=== PATIENT | male | born 1935 | race Caucasian/White ===

== ENCOUNTER 2024-02-02 15:35 | Emergency (ER) | payer MEDICARE, SELFPAY ==
--- NOTE | ~2024-02-02 | XR_ITS ---
EXAMINATION: XR knee RT min 4V DATE: 02/02/2024 16:30 INDICATION: Right knee pain and swelling. Fall. TECHNIQUE: 5 views of right knee were obtained. COMPARISON: None. FINDINGS: There is lateral subluxation of patella. There is a comminuted fracture of proximal patella . The main distal fracture fragment demonstrates 3 mm distraction. There is moderate osteoarthritis o f patellofemoral compartment and mild osteoarthritis of medial lateral compartments. 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 There is a large knee joint effusion. IMPRESSION: 1. Comminuted fracture of proximal patella. 2. Moderate right knee osteoarthritis. 3. Large knee joint effusion. Reviewed, dictated and finalized at location A. SEPARATOR
[2024-02-02 15:48] VITALS: BP 137/68; PULSE 93; RESP 20; TEMP 36.7; O2SAT 100
--- NOTE | 2024-02-02 16:09 | ED.FALL ---
HPI - Fall General Chief Complaint: Extremity Injury, Lower Stated Complaint: Fall Injury/Right Knee Source: patient Mode of arrival: ambulatory Limitations: no limitations History of Present Illness HPI Narrative: 88-year-old male presented for complaint of right knee pain and swelling after injury last night. He states a rubber mat slipped underneath him and he landed on hard tile dwight. Since then he has been unable to tolerate full weight-bearing. Has applied ice. Refused to take anything for pain. Admits to hitting the left side of his head but says it did not hurt a bit. Related Data Home Medications ?Medication ?Instructions ?Recorded ?Confirmed ?Last Taken ?Type donepezil 10 mg tablet mg 02/02/24 Unknown History Allergies Allergy/AdvReac Type Severity Reaction Status Date / Time No Known Allergies Allergy Verified 02/02/24 15:54 Review of Systems Review of Systems: CONSTITUTIONAL: Denies body aches, fever, chills CARDIOVASCULAR: Denies chest pain, palpitations, or edema. RESPIRATORY: Denies cough or dyspnea. GASTROINTESTINAL: Denies abdominal pain, nausea, vomiting, or diarrhea. SKIN: Denies wounds. MUSCULOSKELETAL: Reports right knee pain NEUROLOGIC: Denies headache, numbness, tingling, or weakness. All systems reviewed & are unremarkable except as noted in HPI and below PMFSH Comments At time of signature, I have reviewed and agree with nursing past medical, surgical, social and family history unless otherwise noted. Please see nursing chart for further information. There is no relevant family history pertinent to the presenting complaint Exam Narrative: GENERAL: Well-appearing HEAD: Normocephalic, atraumatic. CHEST: Speaks in full sentences. No respiratory distress. HEART: Regular rate and rhythm. Normal and equal peripheral pulses. EXTREMITIES: RLE unable to tolerate weight bearing, Limited range of motion right knee due to pain with movement. Moderate swelling noted to right knee; tender with palpation of the patella and superior to the patella. No open wounds, RLE has mya sensation,pulse palpable and equal bilaterally, skin warm, dry, pink. Capillary refill less than 3 seconds. SKIN: Warm, dry NEURO: Alert and oriented x3. PSYCH: Normal mood and affect Course Course Emergency Course: Patient is aware of diagnosis, understands and agrees to treatment plan. Anticipatory guidance given. Patient agrees to follow-up as directed and is aware of reasons to seek care at the emergency department. Portions of this record may have been created with voice recognition software Level of Care: Express Care Visit Vital Signs Vital signs: Vital Signs Temperature 98.0 F 02/02/24 15:48 Pulse Rate 93 02/02/24 15:48 Respiratory Rate 20 02/02/24 15:48 Blood Pressure 137/68 02/02/24 15:48 Pulse Oximetry 100 02/02/24 15:48 Oxygen Delivery Room Air 02/02/24 15:48 Temperature 98.0 F 02/02/24 15:48 Pulse Rate 93 02/02/24 15:48 Respiratory Rate 20 02/02/24 15:48 Blood Pressure 137/68 02/02/24 15:48 Pulse Oximetry 100 02/02/24 15:48 Oxygen Delivery Room Air 02/02/24 15:48 Reviewed Transfer Transfered to: [place] Transportation: Other ( Private vehicle) Transfer rationale: Pt is agreeable to transfer. Requests transfer to [facility] via private vehicle/ ambulance. Risks of transportation reviewed with pt including injury, worsening of condition and . v/u. Dtr will be driving pt; Report called to hospital, spoke with Jordy West PA-C, accepting physician. Pt is in stable condition at time of transfer. Advised to remain NPO and go directly to the hospital. MDM - Fall MDM Narrative Medical decision making narrative: Discussed physical exam findings and Xray result; comminuted fracture of right patella. Advised ER transfer given age and limited mobility. Spoke with ER Jordy West PA-C. Daughter at bedside is agreeable to the transfer and aware of the possibility of immobilization and f/u. Knee immobilizer applied prior to dc. Differential Diagnosis Differential diagnosis: Likely other (osteoarthritis, patella dislocation, patalla fracture, patellar tendonitis, tendon rupture, gout, bakers cyst, septic bursitis, tibial plateau fracture) Imaging Data Radiologist's impression: Patient: Hakan Recinos : 1935 MR#: [id number] Age: 88 Acct:[id number] Loc: [facility] ADM Date: 02/02/24Attending Dr: Ordering Physician: Jocelyn Vidal APRN Date of Service: 02/02/24 Procedure(s): XR knee RT min 4V Accession Number(s): [id number] cc: Jocelyn Vidal APRN; UNKNOWN,DOCTOR~ EXAMINATION: XR knee RT min 4V DATE: 02/02/2024 16:30 INDICATION: Right knee pain and swelling. Fall. TECHNIQUE: 5 views of right knee were obtained. COMPARISON: None. FINDINGS: There is lateral subluxation of patella. There is a comminuted fracture of proximal patella. The main distal fracture fragment demonstrates 3 mm distraction. There is moderate osteoarthritis of patellofemoral compartment and mild osteoarthritis of medial lateral compartments. There is chondrocalcinosis of the menisci. There is a large knee joint effusion. IMPRESSION: 1. Comminuted fracture of proximal patella. 2. Moderate right knee osteoarthritis. 3. Large knee joint effusion. Discharge Plan Discharge Clinical Impression: Fractured patella Qualifiers: Encounter type: initial encounter Fracture type: closed Fracture morphology: comminuted Fracture alignment: displaced Laterality: right Qualified Code(s): S82.041A - Displaced comminuted fracture of right patella, initial encounter for closed fracture Patient Disposition: Acute Care Hospital Condition: Stable Instructions: Antibiotic Form Patient Language: Wolof Prescriptions: No Action donepezil 10 mg tablet Follow-up/Referrals: UNKNOWN,DOCTOR [Primary Care Provider] - Time of Disposition: 17:13
== END 2024-02-02 17:12 | disposition short-term general hospital (02) ==
PROVIDERS: Emergency Provider Nurse Practitioner Family
DX: S82.041A Displaced comminuted fracture of right patella, initial encounter for closed fracture (principal); W01.0XXA Fall on same level from slipping, tripping and stumbling without subsequent striking against object, initial encounter; F03.90 Unspecified dementia, unspecified severity, without behavioral disturbance, psychotic disturbance, mood disturbance, and anxiety
CPT/HCPCS: 73564; 99214; G0463; L1830

== ENCOUNTER 2024-02-02 18:18 | Inpatient (IN) | payer MEDICARE, SELFPAY ==
--- NOTE | ~2024-02-02 | XR_ITS ---
EXAMINATION: XR chest 2V DATE: 02/02/2024 22:13 INDICATION: Fall. TECHNIQUE: Frontal and lateral views of the chest were obtained. COMPARISON: None. FINDINGS: There is no pneumonia, pleural effusion, or pneumothorax. The heart size is normal. There i s a 2 mm radiopaque foreign body in the anterior neck. IMPRESSION: 1. No acute cardiopulmonary disease. Reviewed, dictated and finalized at location A. MMISSIONING WELL SITE MANAGER
--- NOTE | ~2024-02-02 | XR_ITS ---
EXAMINATION: XR pelvis 1-2V DATE: 02/02/2024 22:13 INDICATION: Fall. TECHNIQUE: An anteroposterior view of the pelvis was obtained. COMPARISON: None. FINDINGS: There is lumbar dextroscoliosis and severe spondylosis. No fracture. There is moderate righ t hip osteoarthritis and mild left hip osteoarthritis. IMPRESSION: 1. 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 Reviewed, dictated and finalized at location A. ICATION TECHNICIAN
--- NOTE | ~2024-02-02 | CT_ITS ---
EXAMINATION: CT brain wo con DATE: 02/02/2024 22:23 INDICATION: Head injury. TECHNIQUE: Computed tomography (CT) of the head was performed without intravenous contrast. The mA wa s adjusted according to patient size. Iterative reconstruction technique was employed. The dose-lengt h product was 908.00 mGy-cm. COMPARISON: None FINDINGS: There are scattered areas of low attenuation in the cerebral white matter. There is no intr acranial hemorrhage, acute infarction, or abnormal intracranial mass lesion. 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 The ventricles are normal in size. There is mild mucosal thickening in the paranas al sinuses. There are likely changes of ocular lens replacement surgeries. There are small bilateral mastoid effusions. IMPRESSION: 1. 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 2. Moderate nonspecific cerebral white matter disease, which likely represents chronic small vessel i schemic disease. Reviewed, dictated and finalized at location A. ONAL OFFICE COORDINATOR IMPRESSION: 1. 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 2. 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
[2024-02-02 19:02] VITALS: BP 125/84; PULSE 90; RESP 16; TEMP 36.8; O2SAT 98
[2024-02-02 21:47] VITALS: BP 132/81; PULSE 84; RESP 18; O2SAT 98
--- NOTE | 2024-02-02 22:00 | ED.LOWEXIN ---
HPI - Extremity Injury (Lower) General Chief Complaint: Extremity Injury, Lower Stated Complaint: R KNEE FX S/P FALL LAST NIGHT Time Seen by Provider: 02/02/24 21:46 Source: patient Mode of arrival: wheelchair Limitations: dementia History of Present Illness HPI Narrative: This is a 88 year old male that presents to the ER for right knee injury. Patient was placed in a knee immobilizer after being seen at urgent care for patella fracture. Sent to the ER for further evaluation. Reports he slipped and fell last night. He did hit his head. Denies any other pain at this time. Related Data Home Medications ?Medication ?Instructions ?Recorded ?Confirmed ?Last Taken ?Type donepezil 10 mg tablet 10 mg PO QPM 02/02/24 02/02/24 Unknown History famotidine 40 mg tablet 40 mg PO DAILY 02/02/24 02/02/24 Unknown History Allergies Allergy/AdvReac Type Severity Reaction Status Date / Time No Known Allergies Allergy Verified 02/02/24 23:51 Review of Systems Review of Systems: ROS unobtainable: Yes unobtainable due to medical condition PMFSH Past Medical History Medical History History of dementia Family History Family History Other Unknown family medical history Social History Social History Smoking packs per day: 1.5 Smoking cigarettes per day: 30.0 Years smoked: 35 Smoking pack-years: 52.50 Smoking status: Former smoker Substance use: never Do You Feel Safe in your Home?: Yes Lack of Transportation: No Lack of Food: Never True Current Housing: I Have Housing Concerned About Future Housing: No Difficulty Paying Gas/Electric Bills: No Difficulty Paying for Meds: No Currently Unemployed: No Education: High School Diploma/GED Difficulty w/ Childcare or Family Care: No Spiritual care concerns: No Exam Narrative: GENERAL: Elderly, well-nourished, and in no acute distress. HEAD: Normocephalic, atraumatic. EYES: PERRLA and EOMI. ENT: Nares clear, no rhinorrhea or epistaxis. Mucous membranes moist. Oropharynx without tonsillar hypertrophy exudate or other lesions. Bilateral TMs pearly todd non-bulging NECK: Supple. No adenopathy or masses. No midline spinal tenderness CHEST: Clear to auscultation. No respiratory distress. No wheezes rales or rhonchi HEART: Regular rate and rhythm. No murmur heard. Normal peripheral pulses. EXTREMITIES: Normal range of motion, except decreased active ROM in the right knee with edema noted. Normal DP pulse. Normal sensation SKIN: Warm, dry, no rash. NEURO: No focal deficits. Alert and oriented x3. PSYCH: Normal mood and affect Course Course Emergency Course: patient and family updated on workup. they do not believe patient will be safe to go home. Will consult hospitalist for admission Consultations Consultation #1: spoke with hospitalist about patient and workup who accepts admission Date: 02/02/24 Consultation #2: spoke with orthopedics who will consult Date: 02/02/24 Vital Signs Vital signs: Vital Signs Temperature 98.2 F 02/02/24 19:02 Pulse Rate 90 02/02/24 19:02 Respiratory Rate 16 02/02/24 19:02 Blood Pressure 125/84 02/02/24 19:02 Pulse Oximetry 98 02/02/24 19:02 Temperature 98.2 F 02/02/24 19:02 Pulse Rate 84 02/02/24 21:47 Respiratory Rate 18 02/02/24 21:47 Blood Pressure 132/81 02/02/24 21:47 Pulse Oximetry 98 02/02/24 21:47 MDM - Extremity Injury (Lower) MDM Narrative Medical decision making narrative: patient presents from urgent care for patellar fracture after a fall. He is neurovascularly intact. CT brain, chest xray, pelvic xray without acute findings. patient and family updated on workup. they do not believe patient will be safe to go home. Will consult hospitalist for admission. spoke with hospitalist about patient and workup who accepts admission. spoke with orthopedics who will consult Lab Data Attestation: I reviewed the patient's lab results. 02/02/24 22:56 02/02/24 22:56 Labs: Lab Results 02/02/24 Range/Units 22:56 WBC 9.2 (4.5-10.0) K/mm3 RBC 4.04 L (4.6-6.20) M/mm3 Hgb 13.5 L (14.0-18.0) g/dL Hct 39.6 L (42.0-52.0) % MCV 98.0 (80-100) fl MCH 33.4 (26-34) pg MCHC 34.1 (32-36) g/dl RDW 13.2 (11.5-14.5) % Plt Count 184 (150-375) k/mm3 MPV 9.2 (7.4-10.4) fl Immature Gran % (Auto) 0.4 (0-0.5) % Neut % (Auto) 68.2 (45.5-73.1) % Lymph % (Auto) 15.2 L (18.3-44.2) % [place] % (Auto) 12.7 H (2.6-8.5) % Eos % (Auto) 3.0 (0-4.4) % Baso % (Auto) 0.5 (0.2-1.2) % Lymph # (Auto) 1.40 (0.9-3.2) K/mm3 [place] # (Auto) 1.2 H (0.1-0.6) K/mm3 Eos # (Auto) 0.3 (0-0.3) K/mm3 Baso # (Auto) 0.1 (0.0-0.1) K/mm3 Abs Immat Gran (auto) 0.04 H (0.00-0.031) K/mm3 Absolute Neuts (auto) 6.3 (1.3-6.7) K/mm3 Absolute Nucleated RBC 0.000 (0.0-0.012) K/mm3 Nucleated RBC % 0.0 (0.0-0.2) % Sodium 140 (137-145) mmol/L Potassium 4.1 (3.4-5.0) mmol/L Chloride 107 (98-107) mmol/L Carbon Dioxide 30 (22-30) mmol/L Anion Gap 3 L (4-12) mmol/L BUN 23 H (9-20) mg/dL Creatinine 1.30 (0.7-1.3) mg/dL Estim Creat Clear Calc 31 ml/min Estimated GFR 52 L (59 - ) Glucose 106 (65-110) mg/dL Calcium 9.4 (8.4-10.2) mg/dL Imaging Data Radiologist's impression: ITS Impressions Chest X-Ray 12/16/24 22:14 IMPRESSION: 1. No acute cardiopulmonary disease. Pelvis X-Ray 02/02/24 22:17 IMPRESSION: 1. 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 Head CT 02/02/24 22:24 IMPRESSION: 1. 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 2. 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 Critical Care Time Critical Care Time Critical Care Time: No Discharge Plan Discharge Clinical Impression: Fracture, patella Qualifiers: Encounter type: initial encounter Fracture type: closed Fracture morphology: comminuted Fracture alignment: displaced Laterality: right Qualified Code(s): S82.041A - Displaced comminuted fracture of right patella, initial encounter for closed fracture Patient Disposition: Still a Patient Condition: Stable
[2024-02-02 23:19] LABS: Basophils Absolute Auto 0.1 K/mm3 (0.0-0.1); Basophils Percent Auto 0.5 % (0.2-1.2); Eosinophils Absolute Auto 0.3 K/mm3 (0-0.3); Hematocrit 39.6 % (42.0-52.0); Hemoglobin 13.5 g/dL (14.0-18.0); Immature Granulocyte Absolute 0.04 K/mm3 (0.00-0.031); Immature Granulocyte Percent A 0.4 % (0-0.5); Lymphocytes Percent Auto 15.2 % (18.3-44.2); Mean Corpuscular HGB Conc 34.1 g/dl (32-36); Mean Corpuscular Hemoglobin 33.4 pg (26-34); Mean Platelet Volume 9.2 fl (7.4-10.4); Monocytes Absolute Auto 1.2 K/mm3 (0.1-0.6); Monocytes Percent Auto 12.7 % (2.6-8.5); Neutrophils Absolute Auto 6.3 K/mm3 (1.3-6.7); Neutrophils Percent Auto 68.2 % (45.5-73.1); Platelet Count Result 184 k/mm3 (150-375); Red Blood Count 4.04 M/mm3 (4.6-6.20); Red Cell Distribution Width 13.2 % (11.5-14.5); White Blood Count 9.2 K/mm3 (4.5-10.0)
--- NOTE | 2024-02-02 23:24 | PM.IMHP ---
H&P: HPI History of Present Illness Date/Time: 02/02/24 23:24 Chief Complaint: fall Narrative: This is an 88-year-old male with past medical history significant for early dementia, patient was brought to the emergency room after having a mechanical fall while while on wet floor patient unable to get up on by himself no loss of consciousness. Patient has been his usual state of health. Preliminary workup significant for right patella comminuted fracture and large knee effusion. Patient has been admitted for further evaluation management and treatment. EXAMINATION: CT brain wo con DATE: 02/02/2024 22:23 INDICATION: Head injury. TECHNIQUE: Computed tomography (CT) of the head was performed without intravenous contrast. The mA was adjusted according to patient size. Iterative reconstruction technique was employed. The dose-length product was 908.00 mGy-cm. COMPARISON: None FINDINGS: There are scattered areas of low attenuation in the cerebral white matter. There is no intracranial hemorrhage, acute infarction, or abnormal intracranial mass lesion. 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 The ventricles are normal in size. There is mild mucosal thickening in the paranasal sinuses. There are likely changes of ocular lens replacement surgeries. There are small bilateral mastoid effusions. IMPRESSION: 1. 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 2. 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 EXAMINATION: XR chest 2V DATE: 02/02/2024 22:13 INDICATION: Fall. TECHNIQUE: Frontal and lateral views of the chest were obtained. COMPARISON: None. FINDINGS: There is no pneumonia, pleural effusion, or pneumothorax. The heart size is normal. There is a 2 mm radiopaque foreign body in the anterior neck. IMPRESSION: 1. No acute cardiopulmonary disease. EXAMINATION: XR knee RT min 4V DATE: 02/02/2024 16:30 INDICATION: Right knee pain and swelling. Fall. TECHNIQUE: 5 views of right knee were obtained. COMPARISON: None. FINDINGS: There is lateral subluxation of patella. There is a comminuted fracture of proximal patella. The main distal fracture fragment demonstrates 3 mm distraction. There is moderate osteoarthritis of patellofemoral compartment and mild osteoarthritis of medial lateral compartments. There is chondrocalcinosis of the menisci. There is a large knee joint effusion. IMPRESSION: 1. Comminuted fracture of proximal patella. 2. Moderate right knee osteoarthritis. 3. Large knee joint effusion. Review of Systems Review of Systems: fall, knee pain, unable to bear weight on R leg [facility] Past Medical History Medical History History of dementia Family History Family History Other Unknown family medical history Social History Social History Smoking packs per day: 1.5 Smoking cigarettes per day: 30.0 Years smoked: 35 Smoking pack-years: 52.50 Smoking status: Former smoker Substance use: never Do You Feel Safe in your Home?: Yes Lack of Transportation: No Lack of Food: Never True Current Housing: I Have Housing Concerned About Future Housing: No Difficulty Paying Gas/Electric Bills: No Difficulty Paying for Meds: No Currently Unemployed: No Education: High School Diploma/GED Difficulty w/ Childcare or Family Care: No Spiritual care concerns: No Meds Home Medications and Allergies Home Medications ?Medication ?Instructions ?Recorded ?Confirmed ?Type donepezil 10 mg tablet 10 mg PO QPM 02/02/24 02/02/24 History famotidine 40 mg tablet 40 mg PO DAILY 02/02/24 02/02/24 History Allergies Allergy/AdvReac Type Severity Reaction Status Date / Time No Known Allergies Allergy Verified 02/02/24 23:51 Vital Signs Vital Signs - 24 hr 02/02/24 19:02 02/02/24 21:47 Temperature 98.2 F Pulse Rate 90 84 Respiratory Rate 16 18 Blood Pressure 125/84 132/81 Pulse Oximetry 98 98 Exam Narrative: lying in stretcher Const: General: comfortable, no acute distress, well developed, alert, awake and average body habitus Nutritional Appearance: average body habitus Orientation/consciousness: patient oriented x3 HENMT: Head: normal to inspection, normocephalic and atraumatic Ears: hearing grossly normal bilaterally Face/Nose/Sinus: normal facial exam Face and sinus: normal facial exam Eyes: General: appearance normal, both eyes and all related structures Pupils: Equal, round and reactive pupils present EOM: EOMs intact bilaterally Neck: Neck: full ROM, no lymphadenopathy and no JVD Thyroid: thyroid normal Lymphatic: no lymphadenopathy noted Resp: Effort & Inspection: normal respiratory effort and able to speak in complete sentences Auscultation: clear to auscultation bilaterally Cardio: Jugular venous distension: no JVD Rate: regular rate Rhythm: regular rhythm Heart sounds: S1 normal heart sound present and S2 normal heart sound present GI: GI Palp: Yes Soft to palpation and Yes No hepatosplenomegaly present : General: Yes deferred Skin: Rashes: no rashes Wounds: no wounds Neuro: General: patient oriented x3 and CN's II-XI intact bilaterally Cranial nerves: Yes CN's II-XII intact bilaterally and Yes Equal, round and reactive pupils present Cognition (Neuro): normal cognition Speech: normal speech Gait exam (Neuro): Unable to assess gait and Other gait observations present ( Right paddle a comminuted fracture with large knee effusion) Motor exam (neuro): 5/5 motor strength present throughout Extrem: General: normal to inspection, full ROM, no joint enlargement and no pedal edema Other: brace in place the right lower extremity Assessment and Plan Assessment and plan (1) Fractured patella: Qualifiers: Encounter type: initial encounter Fracture alignment: displaced Fracture morphology: comminuted Fracture type: closed Laterality: right Qualified Code(s): S82.041A - Displaced comminuted fracture of right patella, initial encounter for closed fracture Code(s): S82.009A - Unspecified fracture of unspecified patella, initial encounter for closed fracture Status: Inactive Assessment and Plan: admit to regular medical floor bed rest brace in place ortho consult (2) Fall: Code(s): W19.XXXA - Unspecified fall, initial encounter Status: Acute Assessment and Plan: fall precautions (3) Dementia: Code(s): F03.90 - Unspecified dementia, unspecified severity, without behavioral disturbance, psychotic disturbance, mood disturbance, and anxiety Status: Acute Assessment and Plan: continue donepezil Hospitalist MIPS Advance Care Plan I have confirmed that the patient's Advanced Care Plan is present, code status is documented, or surrogate decision maker is listed in patient medical record.: Yes Medication Reconciliation I have utilized all available resources to obtain, update and review the patients current medications (includes all prescriptions, OTC, herbals, cannabis, and nutritional supplements).: Yes
[2024-02-02 23:34] LABS: Anion Gap 3 mmol/L (4-12); Blood Urea Nitrogen 23 mg/dL (9-20); Calcium 9.4 mg/dL (8.4-10.2); Carbon Dioxide 30 mmol/L (22-30); Chloride 107 mmol/L (98-107); Estimated CRCL calculation 31 ml/min; Estimated Glomerular Filt Rate 52; Glucose 106 mg/dL (65-110); Potassium 4.1 mmol/L (3.4-5.0); Sodium 140 mmol/L (137-145)
[2024-02-02 23:37] VITALS: BMI 21.1
--- NOTE | 2024-02-02 23:44 | P.CONOP_ITS ---
Assessment and Plan Assessment and plan (1) Fractured patella: Qualifiers: Encounter type: initial encounter Fracture alignment: displaced F racture morphology: comminuted Fracture type: closed Laterality: right Q ualified Code(s): S82.041A - Displaced comminuted fracture of right patella, initial encounter for closed fracture Code(s): S82.009A - Unspecified fracture of unspecified patella, initial encounter for closed fracture Status: Inactive Assessment and Plan: New patient evaluation status post injury right knee. The history, physical exam and radiographs reviewed with the patient. fall on wet mat in the basement at home. Type of fracture discussed in detail. Transverse patella fracture. Treatment options including operative and non operative treatment reviewed. Risks, benefits and alternatives of each treatment discussed in detail. The patient has declined surgical treatment. Risks of treatment decision discussed in detail. Potential problems with displacement of the fracture, loss of alignment, nonunion, malunion and dysfunction discussed in detail. The patient's questions were answered. They verbalized understanding and agreement. Conservative treatment with immobilization, ice, compression and elevation. Knee immobilizer. Weight bear as tolerated. Pain control. PT/OT. May need placement based on mobilization. History of Present Illness HPI Consult date: 02/03/24 Requesting physician: Tari Farmer PA-C Chief complaint: Patella fracture Narrative: 88yo man lives at home, fall today In basement on wet match onto the front of right knee. Right knee pain. Found to have patella fx. Review of Systems 2 Constitutional: Constitutional: Denies fever(s) Eyes: Eyes: Denies blurry vision ENT: Reports Normal hearing present Cardiovascular: Cardiovascular: Denies chest pain and Denies dyspnea Respiratory: Respiratory: Denies dyspnea and Denies wheezing Gastrointestinal: Gastrointestinal: Denies abdominal pain Genitourinary: Genitourinary: Denies urinary urgency Musculoskeletal: Musculoskeletal: Reports as per HPI and Denies numbness Integumentary/Breasts: Skin/Breast: Denies changing lesions and Denies sores Neurologic: Reports Normal hearing present, Denies behavioral changes, Denies confusion, Denies numbness and Denies convulsions Psychiatric: Psychiatric: Denies behavioral changes, Denies confusion and Denies hallucinations Endocrine: Endocrine: Denies heat intolerance Hematologic/Lymphatic: Hematologic/Lymphatic: Denies easy bleeding Allergic/Immunologic: Allergic/Immunologic: Denies wheezing PMFSH Past Medical History Medical History History of dementia Family History Family History Other Unknown family medical history Social History Social History Smoking packs per day: 1.5 Smoking cigarettes per day: 30.0 Years smoked: 35 Smoking pack-years: 52.50 Smoking status: Former smoker Substance use: never Do You Feel Safe in your Home?: Yes Lack of Transportation: No Lack of Food: Never True Current Housing: I Have Housing Concerned About Future Housing: No Difficulty Paying Gas/Electric Bills: No Difficulty Paying for Meds: No Currently Unemployed: No Education: High School Diploma/GED Difficulty w/ Childcare or Family Care: No Spiritual care concerns: No Meds Home Medications and Allergies Home Medications ?Medication ?Instructions ?Recorded ?Confirmed ?Type donepezil 10 mg tablet 10 mg PO QPM 02/02/24 02/02/24 History famotidine 40 mg tablet 40 mg PO DAILY 02/02/24 02/02/24 History Allergies Allergy/AdvReac Type Severity Reaction Status Date / Time No Known Allergies Allergy Verified 02/02/24 23:51 Vital Signs Vital Signs - 24 hr 02/02/24 19:02 02/02/24 21:47 Temperature 98.2 F Pulse Rate 90 84 Respiratory Rate 16 18 Blood Pressure 125/84 132/81 Pulse Oximetry 98 98 Exam 2 Const: General: healthy appearing; No in distress or confusion O rientation/consciousness: oriented to person, oriented to place, oriented to time and No confusion HENMT: Head: normal to inspection, normocephalic and atraumatic Eyes: Conjunctivae: conjunctivae normal Sclera: sclerae normal Neck: Neck: supple and nontender Resp: Effort & Inspection: normal respiratory effort and no audible wheezes Cardio: Rate: regular rate Rhythm: regular rhythm Skin: General skin exam: no rashes or lesions noted Neuro: General: oriented to person, oriented to place, oriented to time and No confusion Extrem: Right upper extremity: normal to inspection Left upper extremity: n ormal to inspection Right lower extremity: hip/thigh Details: normal ROM; no tenderness, knee Details: tenderness (anterior and medial joint line ) Location: of the medial joint line (moderate ) and of the pre-patellar area (moderate ), swelling (peripatellar and medial joint ), abnormal ROM (active range of motion -10 degrees extension, 110 degrees flexion) Details: pain with active ROM during Details: in extension and in flexion, knee ligament exam normal Details: anterior drawer test normal, posterior drawer test normal, valgus stress test normal and Maxine?s test normal, knee ligament exam abnormal Details: varus stress test normal (painful medial ) and Tracy's Test Details: positive medially and foot Details: normal capillary refill, toes with normal ROM, vascular exam Details: dorsalis pedis pulse present and motor-sensory exam Details: light-touch normal; no tenderness; no edema Left lower extremity: n ormal to inspection, normal capillary refill and knee Details: normal ROM (Active extension 5, flexion 130) and knee ligament exam normal; no tenderness Psych: Affect: normal affect Results Labs 02/02/24 22:56 02/02/24 22:56 Labs: Abnormal lab results 02/02/24 Range/Units 22:56 RBC 4.04 L (4.6-6.20) M/mm3 Hgb 13.5 L (14.0-18.0) g/dL Hct 39.6 L (42.0-52.0) % Lymph % (Auto) 15.2 L (18.3-44.2) % [place] % (Auto) 12.7 H (2.6-8.5) % [place] # (Auto) 1.2 H (0.1-0.6) K/mm3 Abs Immat Gran (auto) 0.04 H (0.00-0.031) K/mm3 Anion Gap 3 L (4-12) mmol/L BUN 23 H (9-20) mg/dL Estimated GFR 52 L (59 - ) H & H 02/02/24 Range/Units 22:56 Hgb 13.5 L (14.0-18.0) g/dL Hct 39.6 L (42.0-52.0) % All other labs normal. Diagnostic results Knee x-ray: image reviewed (rt knee comm patella fx) Fracture/Casting/Strapping Pre Procedure Consent was obtained, Procedures/risks were explained, Questions were answered, Correct patient identified and Correct side and site confirmed Episode of Care New episode Location: Right thigh Fracture Care Femur/patella/plateau/knee Femur, Patella, Plateau, Knee: CLOSED TX PATELLAR FX W/O MANIPULATION Application Exam of Affected Area: Color: Normal, Temp: Normal, Pulse: Normal, Blanching: Normal, Capillary Refill: Normal and Sensory Exam: Normal Swelling: Yes (moderate ant knee) and Tenderness: Yes (patella) Skin Apperance: Clean and Dry and Intact Care: Alcohol Wipes Patient Tolerated Procedure Well: Yes Post Procedure Patient tolerated the procedure well?: Tolerated procedure well
--- NOTE | 2024-02-02 23:58 | PC.NURSE ---
Admission complete; family at bedside. Report to DEVONTE Diggs.
[2024-02-03 00:46] VITALS: BP 118/81; PULSE 85; RESP 14; TEMP 36.6; O2SAT 98
--- NOTE | 2024-02-03 04:53 | ADMGEN ---
This patient, Hakan Recinos, was admitted to Medical Room 248-. Patient/family oriented to hospital policies and general routines including ID bracelet, bed and alarms, visiting hours, pain management, procedures, bathroom and other care routines, personal items, smoking policy, room service/diet, and visiting hours. Information on how to activate the Rapid Response Team has been discussed. Patient/Family are encouraged to report perceived risks to care and to ask questions if they do not understand what they are told or what they should do.
[2024-02-03 04:57] VITALS: PULSE 85; RESP 14; O2SAT 98
[2024-02-03 06:55] VITALS: BP 118/68; PULSE 89; RESP 14; TEMP 36.6; O2SAT 96
[2024-02-03] MEDS: FAMOTIDINE 20 MG TABLET 40 MG PO (09:15)
--- NOTE | 2024-02-03 10:13 | PM.IMPN ---
Progress Note: A&P Assessment and Plan (1) Fractured patella: Qualifiers: Encounter type: initial encounter Fracture alignment: displaced Fracture morphology: comminuted Fracture type: closed Laterality: right Qualified Code(s): S82.041A - Displaced comminuted fracture of right patella, initial encounter for closed fracture Code(s): S82.009A - Unspecified fracture of unspecified patella, initial encounter for closed fracture Status: Inactive Assessment and Plan: - Seen by orthopedic. - Declined surgical treatment. - Conservative treatment for now. - Pain meds PRN. - PT/OT eval and treatment. - Discharge plans pending PT/OT eval. (2) Fall: Code(s): W19.XXXA - Unspecified fall, initial encounter Status: Acute Assessment and Plan: - Likely mechanical per patient. - CXR negative. - CXR negative. - CT head negative for acute. - No further w/u for now. (3) Dementia: Code(s): F03.90 - Unspecified dementia, unspecified severity, without behavioral disturbance, psychotic disturbance, mood disturbance, and anxiety Status: Acute Assessment and Plan: - Continue donepezil. - Safety monitoring and assist with care. Plan PT/OT eval pending and we'll discuss discharge plans thereafter. Continue supportive care. Time Spent With Patient Time with patient: 15 - 25 minutes Subjective Date/time seen: 02/03/24 10:13 Patient states he feels alright and has no pain currently. States wants to go home. Daughter bedside states pt lives in basement and eats upstairs so has to climb > 10 steps for that. Daughter not comfortable with patient leaving the hospital until he can demonstrate going up and down the stairs. Interval history: Patient calm on bedrest and looks to be in no acute distress. Review of Systems Review of Systems: fall, knee pain, unable to bear weight on R leg All systems reviewed & are unremarkable except as noted in HPI and below Exam Narrative: General: Fair appearing, no acute distress. HEENT: Atraumatic, PERRL, EOM, moist mucosa. NECK: Supple. Lungs: Clear bilaterally. Heart: RRR, no murmurs. Abdomen: Soft, non-tender, non-distended, +VE BS X4 quadrants. Extremities: Acyanotic, no edema, Right knee brace intact. Skin: Warm and dry. Neuro: Fairly well oriented, no focal neuro deficits. Psych: Calm and co-operative. Objective Data Vital Signs Vital Signs: Vital Signs - 24 hr 02/02/24 19:02 02/02/24 21:47 02/03/24 00:46 Temperature 98.2 F 97.9 F Pulse Rate 90 84 85 Respiratory Rate 16 18 14 Blood Pressure 125/84 132/81 118/81 Pulse Oximetry 98 98 98 Oxygen Delivery 02/03/24 04:57 02/03/24 06:55 Temperature 97.8 F Pulse Rate 85 89 Respiratory Rate 14 14 Blood Pressure 118/68 Pulse Oximetry 98 96 Oxygen Delivery Room Air Intake/Output Intake/Output: Intake & Output 01/31/24 02/01/24 02/02/24 02/03/24 23:59 23:59 23:59 23:59 Intake Total 340 Output Total 250 Balance 90 Meds/Results Medications: Active Medications Generic Name Dose Route Start Last Admin Trade Name Freq PRN Reason Stop Dose Admin Acetaminophen 650 mg 02/02/24 23:10 Acetaminophen 325 Mg Tablet PO Q4H PRN Mild Pain (1-3) or Fever Hydrocodone Bitart/Acetaminophen 1 tab 02/02/24 23:10 Hydrocodone/Acetaminophen (*Crx) 5-325 Mg Tablet PO Q4H PRN Pain Rated 4-6 Donepezil HCl 10 mg 02/03/24 18:00 Donepezil Hcl 10 Mg Tablet PO QPM KEYLA Famotidine 40 mg 02/03/24 09:00 02/03/24 09:15 Famotidine 20 Mg Tablet PO 40 mg DAILY KEYLA Administration Ibuprofen 400 mg 02/02/24 23:10 Ibuprofen 400 Mg Tablet PO Q6H PRN Mild Pain (1-3) or Fever Radiology Results: ITS Impressions Chest X-Ray 02/02/24 22:14 IMPRESSION: 1. No acute cardiopulmonary disease. Pelvis X-Ray 02/02/24 22:17 IMPRESSION: 1. 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 Head CT 02/02/24 22:24 IMPRESSION: 1. 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 2. 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 Labs Labs: Laboratory Results - last 24 hr 02/02/24 22:56 WBC 9.2 RBC 4.04 L Hgb 13.5 L Hct 39.6 L MCV 98.0 MCH 33.4 MCHC 34.1 RDW 13.2 Plt Count 184 MPV 9.2 Immature Gran % (Auto) 0.4 Neut % (Auto) 68.2 Lymph % (Auto) 15.2 L [place] % (Auto) 12.7 H Eos % (Auto) 3.0 Baso % (Auto) 0.5 Lymph # (Auto) 1.40 [place] # (Auto) 1.2 H Eos # (Auto) 0.3 Baso # (Auto) 0.1 Abs Immat Gran (auto) 0.04 H Absolute Neuts (auto) 6.3 Absolute Nucleated RBC 0.000 Nucleated RBC % 0.0 Sodium 140 Potassium 4.1 Chloride 107 Carbon Dioxide 30 Anion Gap 3 L BUN 23 H Creatinine 1.30 Estim Creat Clear Calc 31 Estimated GFR 52 L Glucose 106 Calcium 9.4 Quality VTE Prophylaxis VTE prophylaxis: mechanical ordered Hospitalist MIPS Advance Care Plan I have confirmed that the patient's Advanced Care Plan is present, code status is documented, or surrogate decision maker is listed in patient medical record.: Yes Medication Reconciliation I have utilized all available resources to obtain, update and review the patients current medications (includes all prescriptions, OTC, herbals, cannabis, and nutritional supplements).: Yes
[2024-02-03 14:00] VITALS: BP 112/70; PULSE 92; RESP 20; TEMP 36.4; O2SAT 97
[2024-02-03] MEDS: ACETAMINOPHEN 325 MG TABLET 650 MG PO (14:48)
[2024-02-03] MEDS: DONEPEZIL HCL 10 MG TABLET PO (17:49)
[2024-02-03] MEDS: SODIUM CHLORIDE 0.9% IV 500 ML IV CONT (19:05)
[2024-02-03 20:00] VITALS: PULSE 81; RESP 16; O2SAT 97
[2024-02-03 21:26] VITALS: BP 107/66; PULSE 81; RESP 16; TEMP 37; O2SAT 97
[2024-02-04 05:57] VITALS: BP 115/68; PULSE 85; RESP 16; TEMP 36.6; O2SAT 97
[2024-02-04 08:00] LABS: Basophils Absolute Auto 0.1 K/mm3 (0.0-0.1); Basophils Percent Auto 0.8 % (0.2-1.2); Eosinophils Absolute Auto 0.3 K/mm3 (0-0.3); Eosinophils Percent Auto 3.8 % (0-4.4); Hematocrit 36.5 % (42.0-52.0); Hemoglobin 12.4 g/dL (14.0-18.0); Immature Granulocyte Percent A 1.4 % (0-0.5); Lymphocytes Absolute Auto 1.72 K/mm3 (0.9-3.2); Lymphocytes Percent Auto 23.3 % (18.3-44.2); Mean Corpuscular Hemoglobin 33.4 pg (26-34); Mean Corpuscular Volume 98.4 fl (80-100); Mean Platelet Volume 9.3 fl (7.4-10.4); Monocytes Absolute Auto 1.1 K/mm3 (0.1-0.6); Monocytes Percent Auto 14.6 % (2.6-8.5); Neutrophils Absolute Auto 4.2 K/mm3 (1.3-6.7); Neutrophils Percent Auto 56.1 % (45.5-73.1); Platelet Count Result 158 k/mm3 (150-375); Red Blood Count 3.71 M/mm3 (4.6-6.20); Red Cell Distribution Width 12.7 % (11.5-14.5); White Blood Count 7.4 K/mm3 (4.5-10.0)
[2024-02-04 08:09] LABS: Alanine Aminotransferase 19 U/L (6-50); Alkaline Phosphatase 72 U/L (38-126); Anion Gap 5 mmol/L (4-12); Aspartate Amino Transferase 29 U/L (17-59); Blood Urea Nitrogen 24 mg/dL (9-20); Carbon Dioxide 26 mmol/L (22-30); Chloride 107 mmol/L (98-107); Estimated CRCL calculation 31 ml/min; Estimated Glomerular Filt Rate 52; Glucose 92 mg/dL (65-110); Potassium 4.1 mmol/L (3.4-5.0); Sodium 138 mmol/L (137-145)
[2024-02-04] MEDS: FAMOTIDINE 20 MG TABLET 40 MG PO (08:41)
--- NOTE | 2024-02-04 11:09 | PM.IMPN ---
Progress Note: A&P Assessment and Plan (1) Fractured patella: Qualifiers: Encounter type: initial encounter Fracture alignment: displaced Fracture morphology: comminuted Fracture type: closed Laterality: right Qualified Code(s): S82.041A - Displaced comminuted fracture of right patella, initial encounter for closed fracture Code(s): S82.009A - Unspecified fracture of unspecified patella, initial encounter for closed fracture Status: Inactive Assessment and Plan: - Seen by orthopedic. - Declined surgical treatment. - Conservative treatment for now. - Pain meds PRN. - PT/OT eval and treatment. - Discharge plans pending rehab placement. (2) Fall: Code(s): W19.XXXA - Unspecified fall, initial encounter Status: Acute Assessment and Plan: - Likely mechanical per patient. - CXR negative. - CT head negative for acute. - No further w/u for now. (3) Dementia: Code(s): F03.90 - Unspecified dementia, unspecified severity, without behavioral disturbance, psychotic disturbance, mood disturbance, and anxiety Status: Acute Assessment and Plan: - Continue donepezil. - Safety monitoring and assist with care. Subjective Date/time seen: 02/04/24 11:09 Interval history: Patient reports pain in right knee is an 8 , constant, and aching. Patient denies chest pain, palpitations, shortness of breath, headache, or dizziness. Daughter is at bedside. Review of Systems Review of Systems: All systems reviewed & are unremarkable except as noted in HPI and below Exam Const: General: comfortable and no acute distress Neck: Neck: supple Resp: Effort & Inspection: normal respiratory effort Auscultation: clear to auscultation bilaterally Cardio: Rate: regular rate Rhythm: regular rhythm GI: GI Palp: Yes Soft to palpation Auscultation: normal bowel sounds Skin: Other: warm and dry Neuro: Speech: normal speech Extrem: Other: Acyanotic, no edema, Right knee brace intact. Psych: Affect: normal affect Other: Calm and cooperative. Objective Data Vital Signs Vital Signs: Vital Signs - 24 hr 02/03/24 14:00 02/03/24 14:18 02/03/24 14:39 Temperature 97.6 F Pulse Rate 92 Respiratory Rate 20 Blood Pressure 112/70 Pulse Oximetry 97 Oxygen Delivery Room Air Room Air 02/03/24 20:00 02/03/24 21:26 02/04/24 05:57 Temperature 98.6 F 97.8 F Pulse Rate 81 81 85 Respiratory Rate 16 16 16 Blood Pressure 107/66 115/68 Pulse Oximetry 97 97 97 Oxygen Delivery Room Air 02/04/24 08:47 Temperature Pulse Rate Respiratory Rate Blood Pressure Pulse Oximetry Oxygen Delivery Room Air Intake/Output Intake/Output: Intake & Output 02/01/24 02/02/24 02/03/24 02/04/24 23:59 23:59 23:59 23:59 Intake Total 580 580 Output Total 350 Balance 230 580 Meds/Results Medications: Active Medications Generic Name Dose Route Start Last Admin Trade Name Freq PRN Reason Stop Dose Admin Acetaminophen 650 mg 02/02/24 23:10 02/03/24 14:48 Acetaminophen 325 Mg Tablet PO 650 mg Q4H PRN Administration Mild Pain (1-3) or Fever Hydrocodone Bitart/Acetaminophen 1 tab 02/02/24 23:10 Hydrocodone/Acetaminophen (*Crx) 5-325 Mg Tablet PO Q4H PRN Pain Rated 4-6 Donepezil HCl 10 mg 02/03/24 18:00 02/03/24 17:49 Donepezil Hcl 10 Mg Tablet PO 10 mg QPM KEYLA Administration Famotidine 40 mg 02/03/24 09:00 02/04/24 08:41 Famotidine 20 Mg Tablet PO 40 mg DAILY KEYLA Administration Ibuprofen 400 mg 02/02/24 23:10 Ibuprofen 400 Mg Tablet PO Q6H PRN Mild Pain (1-3) or Fever Radiology Results: ITS Impressions Chest X-Ray 02/02/24 22:14 IMPRESSION: 1. No acute cardiopulmonary disease. Pelvis X-Ray 02/02/24 22:17 IMPRESSION: 1. 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 Head CT 02/02/24 22:24 IMPRESSION: 1. 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 2. 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 Labs Labs: Laboratory Results - last 24 hr 02/04/24 07:42 WBC 7.4 RBC 3.71 L Hgb 12.4 L Hct 36.5 L MCV 98.4 MCH 33.4 MCHC 34.0 RDW 12.7 Plt Count 158 MPV 9.3 Immature Gran % (Auto) 1.4 H Neut % (Auto) 56.1 Lymph % (Auto) 23.3 [place] % (Auto) 14.6 H Eos % (Auto) 3.8 Baso % (Auto) 0.8 Lymph # (Auto) 1.72 [place] # (Auto) 1.1 H Eos # (Auto) 0.3 Baso # (Auto) 0.1 Abs Immat Gran (auto) 0.10 H Absolute Neuts (auto) 4.2 Absolute Nucleated RBC 0.000 Nucleated RBC % 0.0 Sodium 138 Potassium 4.1 Chloride 107 Carbon Dioxide 26 Anion Gap 5 BUN 24 H Creatinine 1.30 Estim Creat Clear Calc 31 Estimated GFR 52 L Glucose 92 Calcium 9.0 Magnesium 2.0 Total Bilirubin 2.0 H AST 29 ALT 19 Alkaline Phosphatase 72 Total Protein 7.0 Albumin 4.0 Quality VTE Prophylaxis VTE prophylaxis: mechanical ordered
[2024-02-04 13:50] VITALS: BP 112/69; PULSE 75; RESP 16; TEMP 36.6; O2SAT 97
[2024-02-04] MEDS: DONEPEZIL HCL 10 MG TABLET PO (17:19)
[2024-02-04 19:54] VITALS: BP 117/60; PULSE 81; RESP 18; TEMP 36.8; O2SAT 96
[2024-02-05 06:00] VITALS: BP 132/80; PULSE 63; RESP 18; TEMP 36.8; O2SAT 99
[2024-02-05 06:05] LABS: Basophils Absolute Auto 0.1 K/mm3 (0.0-0.1); Basophils Percent Auto 0.7 % (0.2-1.2); Eosinophils Absolute Auto 0.4 K/mm3 (0-0.3); Eosinophils Percent Auto 4.9 % (0-4.4); Hematocrit 35.5 % (42.0-52.0); Hemoglobin 12.3 g/dL (14.0-18.0); Immature Granulocyte Absolute 0.01 K/mm3 (0.00-0.031); Immature Granulocyte Percent A 0.1 % (0-0.5); Lymphocytes Absolute Auto 1.67 K/mm3 (0.9-3.2); Lymphocytes Percent Auto 22.3 % (18.3-44.2); Mean Corpuscular HGB Conc 34.6 g/dl (32-36); Mean Corpuscular Hemoglobin 33.9 pg (26-34); Mean Corpuscular Volume 97.8 fl (80-100); Mean Platelet Volume 9.5 fl (7.4-10.4); Monocytes Absolute Auto 1.1 K/mm3 (0.1-0.6); Monocytes Percent Auto 14.8 % (2.6-8.5); Neutrophils Absolute Auto 4.3 K/mm3 (1.3-6.7); Neutrophils Percent Auto 57.2 % (45.5-73.1); Platelet Count Result 166 k/mm3 (150-375); Red Blood Count 3.63 M/mm3 (4.6-6.20); Red Cell Distribution Width 12.5 % (11.5-14.5); White Blood Count 7.5 K/mm3 (4.5-10.0)
[2024-02-05 06:18] LABS: Alanine Aminotransferase 32 U/L (6-50); Albumin Level 3.9 g/dL (3.5-5.1); Alkaline Phosphatase 88 U/L (38-126); Anion Gap 5 mmol/L (4-12); Aspartate Amino Transferase 39 U/L (17-59); Bilirubin,Total 1.4 mg/dL (0.2-1.3); Blood Urea Nitrogen 23 mg/dL (9-20); Carbon Dioxide 26 mmol/L (22-30); Chloride 106 mmol/L (98-107); Estimated CRCL calculation 31 ml/min; Estimated Glomerular Filt Rate 52; Glucose 106 mg/dL (65-110); Potassium 3.8 mmol/L (3.4-5.0); Sodium 137 mmol/L (137-145)
[2024-02-05] MEDS: FAMOTIDINE 20 MG TABLET 40 MG PO (07:45)
[2024-02-05 09:18] VITALS: O2SAT 98
--- NOTE | 2024-02-05 10:17 | P.PNIM_ITS ---
Progress Note: A&P Assessment and Plan (1) Fractured patella: Qualifiers: Encounter type: initial encounter Fracture alignment: displaced Fracture morphology: comminuted Fracture type: closed Laterality: right Qualified Code(s): S82.041A - Displaced comminuted fracture of right patella, initial encounter for closed fracture Code(s): S82.009A - Unspecified fracture of unspecified patella, initial encounter for closed fracture Status: Inactive Assessment and Plan: - Seen by orthopedic. - Declined surgical treatment. - Conservative treatment for now. - Pain meds PRN. - PT/OT eval and treatment. - Discharge plans pending rehab placement. (2) Fall: Code(s): W19.XXXA - Unspecified fall, initial encounter Status: Acute Assessment and Plan: - Likely mechanical per patient. - CXR negative. - CT head negative for acute. - No further w/u for now. (3) Dementia: Code(s): F03.90 - Unspecified dementia, unspecified severity, without behavioral disturbance, psychotic disturbance, mood disturbance, and anxiety Status: Acute Assessment and Plan: - Continue donepezil. - Safety monitoring and assist with care. Subjective Date/time seen: 02/05/24 10:17 Interval history: Patient sitting up in chair. Patient reports pain in right knee is a 2 , constant, and aching. Patient denies chest pain, palpitations, headache, dizziness, nausea, or vomiting. Daughter at bedside. Review of Systems Review of Systems: All systems reviewed & are unremarkable except as noted in HPI and below Exam Const: General: no acute distress and uncomfortable Resp: Effort & Inspection: normal respiratory effort Auscultation: clear to auscultation bilaterally Cardio: Rate: regular rate Rhythm: regular rhythm GI: GI Palp: Yes Soft to palpation Auscultation: normal bowel sounds Skin: Other: warm and dry Neuro: Speech: normal speech Extrem: General: no pedal edema Other: Right knee brace intact Psych: Affect: normal affect Other: Calm and cooperative. Objective Data Vital Signs Vital Signs: Vital Signs - 24 hr 02/04/24 13:50 02/04/24 19:54 02/05/24 06:00 Temperature 97.8 F 98.2 F 98.3 F Pulse Rate 75 81 63 Respiratory Rate 16 18 18 Blood Pressure 112/69 117/60 132/80 Pulse Oximetry 97 96 99 Oxygen Delivery 02/05/24 07:47 02/05/24 09:18 Temperature Pulse Rate Respiratory Rate Blood Pressure Pulse Oximetry 98 Oxygen Delivery Room Air Room Air Intake/Output Intake/Output: Intake & Output 02/02/24 02/03/24 02/04/24 02/05/24 23:59 23:59 23:59 23:59 Intake Total 580 1540 240 Output Total 350 400 Balance 230 1140 240 Meds/Results Medications: Active Medications Generic Name Dose Route Start Last Admin Trade Name Freq PRN Reason Stop Dose Admin Acetaminophen 650 mg 02/02/24 23:10 02/03/24 14:48 Acetaminophen 325 Mg Tablet PO 650 mg Q4H PRN Administration Mild Pain (1-3) or Fever Hydrocodone Bitart/Acetaminophen 1 tab 02/02/24 23:10 Hydrocodone/Acetaminophen (*Crx) 5-325 Mg Tablet PO Q4H PRN Pain Rated 4-6 Donepezil HCl 10 mg 02/03/24 18:00 02/04/24 17:19 Donepezil Hcl 10 Mg Tablet PO 10 mg QPM KEYLA Administration Famotidine 40 mg 02/03/24 09:00 02/05/24 07:45 Famotidine 20 Mg Tablet PO 40 mg DAILY KEYLA Administration Ibuprofen 400 mg 02/02/24 23:10 Ibuprofen 400 Mg Tablet PO Q6H PRN Mild Pain (1-3) or Fever Radiology Results: ITS Impressions Chest X-Ray 02/02/24 22:14 IMPRESSION: 1. No acute cardiopulmonary disease. Pelvis X-Ray 02/02/24 22:17 IMPRESSION: 1. 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 Head CT 02/02/24 22:24 IMPRESSION: 1. 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 2. 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 Labs Labs: Laboratory Results - last 24 hr 02/05/24 05:37 WBC 7.5 RBC 3.63 L Hgb 12.3 L Hct 35.5 L MCV 97.8 MCH 33.9 MCHC 34.6 RDW 12.5 Plt Count 166 MPV 9.5 Immature Gran % (Auto) 0.1 Neut % (Auto) 57.2 Lymph % (Auto) 22.3 [place] % (Auto) 14.8 H Eos % (Auto) 4.9 H Baso % (Auto) 0.7 Lymph # (Auto) 1.67 [place] # (Auto) 1.1 H Eos # (Auto) 0.4 H Baso # (Auto) 0.1 Abs Immat Gran (auto) 0.01 Absolute Neuts (auto) 4.3 Absolute Nucleated RBC 0.000 Nucleated RBC % 0.0 Sodium 137 Potassium 3.8 Chloride 106 Carbon Dioxide 26 Anion Gap 5 BUN 23 H Creatinine 1.30 Estim Creat Clear Calc 31 Estimated GFR 52 L Glucose 106 Calcium 9.0 Total Bilirubin 1.4 H AST 39 ALT 32 Alkaline Phosphatase 88 Total Protein 7.0 Albumin 3.9 Quality VTE Prophylaxis VTE prophylaxis: mechanical ordered
[2024-02-05 14:00] VITALS: BP 124/56; PULSE 85; RESP 16; TEMP 36.4; O2SAT 7
[2024-02-05] MEDS: DONEPEZIL HCL 10 MG TABLET PO (17:12)
[2024-02-05 19:39] VITALS: BP 131/63; PULSE 95; RESP 16; TEMP 36.7; O2SAT 96
[2024-02-06 04:59] VITALS: BP 132/71; PULSE 83; RESP 20; TEMP 36.1; O2SAT 95
[2024-02-06 06:06] LABS: Basophils Absolute Auto 0.1 K/mm3 (0.0-0.1); Basophils Percent Auto 0.8 % (0.2-1.2); Eosinophils Absolute Auto 0.4 K/mm3 (0-0.3); Hematocrit 35.7 % (42.0-52.0); Hemoglobin 12.3 g/dL (14.0-18.0); Immature Granulocyte Absolute 0.04 K/mm3 (0.00-0.031); Immature Granulocyte Percent A 0.5 % (0-0.5); Lymphocytes Absolute Auto 1.88 K/mm3 (0.9-3.2); Lymphocytes Percent Auto 23.6 % (18.3-44.2); Mean Corpuscular HGB Conc 34.5 g/dl (32-36); Mean Corpuscular Hemoglobin 33.3 pg (26-34); Mean Corpuscular Volume 96.7 fl (80-100); Mean Platelet Volume 9.5 fl (7.4-10.4); Monocytes Absolute Auto 1.1 K/mm3 (0.1-0.6); Monocytes Percent Auto 13.5 % (2.6-8.5); Neutrophils Absolute Auto 4.5 K/mm3 (1.3-6.7); Neutrophils Percent Auto 56.6 % (45.5-73.1); Platelet Count Result 197 k/mm3 (150-375); Red Blood Count 3.69 M/mm3 (4.6-6.20); Red Cell Distribution Width 12.3 % (11.5-14.5)
[2024-02-06 06:20] LABS: Alanine Aminotransferase 73 U/L (6-50); Alkaline Phosphatase 111 U/L (38-126); Anion Gap 4 mmol/L (4-12); Aspartate Amino Transferase 63 U/L (17-59); Bilirubin,Total 1.3 mg/dL (0.2-1.3); Blood Urea Nitrogen 25 mg/dL (9-20); Carbon Dioxide 26 mmol/L (22-30); Chloride 106 mmol/L (98-107); Estimated CRCL calculation 31 ml/min; Estimated Glomerular Filt Rate 52; Glucose 121 mg/dL (65-110); Potassium 3.8 mmol/L (3.4-5.0); Sodium 136 mmol/L (137-145)
[2024-02-06] MEDS: FAMOTIDINE 20 MG TABLET 40 MG PO (07:48)
--- NOTE | 2024-02-06 09:24 | PM.PNORT ---
Progress Note: A&P Assessment and Plan (1) Fractured patella: Qualifiers: Encounter type: initial encounter Fracture alignment: displaced Fracture morphology: comminuted Fracture type: closed Laterality: right Qualified Code(s): S82.041A - Displaced comminuted fracture of right patella, initial encounter for closed fracture Code(s): S82.009A - Unspecified fracture of unspecified patella, initial encounter for closed fracture Status: Inactive Assessment and Plan: 4 days s/p transverse patella fracture. The fracture type and injury as well as radiographs discussed with the patient. Operative and nonoperative treatment options reviewed. The patient elects for non operative treatment. Risk of nonunion, malunion or late displacement discussed. Stiffness, pain and possible dysfunction of the joint discussed. Fracture precautions and activity restrictions reviewed. The patient verbalizes understanding. Discussed aspiration of suspected moderate hemarthrosis but patient declines. Reports significant improvement in pain. Recommended continued knee immobilizer. Will transition to hinged knee brace prior to discharge. Weight bear as tolerated. Pain control. PT/OT. Dispo: SNF Follow up in the outpatient orthopedic clinic scheduled. Plan Reviewed history, exam, radiographs and current labs with attending MD and covering surgeon, Dr. Alvarenga, who agrees with current plan as indicated above. No further recommendations from Dr. Alvarenga at this time. Subjective Subjective Date/Time Seen: 02/06/24 09:24 Interval history: Patient doing well. Sitting up in chair. Denies pain. Tolerating brace. Review of Systems Review of Systems: All systems reviewed & are unremarkable except as noted in HPI and below Exam Const: General: healthy appearing; No in distress or confusion Orientation/consciousness: oriented to person, oriented to place, oriented to time and No confusion HENMT: Head: normal to inspection, normocephalic and atraumatic Eyes: Conjunctivae: conjunctivae normal Sclera: sclerae normal Neck: Neck: supple and nontender Resp: Effort & Inspection: normal respiratory effort and no audible wheezes Cardio: Rate: regular rate Rhythm: regular rhythm Skin: General skin exam: no rashes or lesions noted Neuro: General: oriented to person, oriented to place, oriented to time and No confusion Extrem: Right upper extremity: normal to inspection Left upper extremity: normal to inspection Right lower extremity: hip/thigh Details: normal ROM; no tenderness, knee Details: tenderness (anterior and medial joint line ) Location: of the medial joint line (moderate ) and of the pre-patellar area (moderate ), swelling (moderate hemarthrosis ), abnormal ROM (active range of motion -10 degrees extension, 110 degrees flexion) Details: pain with active ROM during Details: in extension and in flexion, knee ligament exam normal Details: anterior drawer test normal, posterior drawer test normal, valgus stress test normal and Maxine?s test normal, knee ligament exam abnormal Details: varus stress test normal (painful medial ) and Tracy's Test Details: positive medially and foot Details: normal capillary refill, toes with normal ROM, vascular exam Details: dorsalis pedis pulse present and motor-sensory exam Details: light-touch normal; no tenderness; no edema Left lower extremity: normal to inspection, normal capillary refill and knee Details: normal ROM (Active extension 5, flexion 130) and knee ligament exam normal; no tenderness Psych: Affect: normal affect Objective Data Vital Signs Vital Signs: Vital Signs - 24 hr 02/05/24 14:00 02/05/24 19:39 02/06/24 04:59 Temperature 36.4 C L 36.7 C 36.1 C L Pulse Rate 85 95 83 Respiratory Rate 16 16 20 Blood Pressure 124/56 L 131/63 132/71 Pulse Oximetry 7 L 96 95 Oxygen Delivery 02/06/24 07:52 Temperature Pulse Rate Respiratory Rate Blood Pressure Pulse Oximetry Oxygen Delivery Room Air Intake/Output Intake/Output: Intake & Output 02/03/24 02/04/24 02/05/24 02/06/24 23:59 23:59 23:59 23:59 Intake Total 580 1540 870 150 Output Total 350 400 300 250 Balance 230 1140 570 -100 Meds/Results Medications: Active Medications Generic Name Dose Route Start Last Admin Trade Name Freq PRN Reason Stop Dose Admin Acetaminophen 650 mg 02/02/24 23:10 02/03/24 14:48 Acetaminophen 325 Mg Tablet PO 650 mg Q4H PRN Administration Mild Pain (1-3) or Fever Hydrocodone Bitart/Acetaminophen 1 tab 02/02/24 23:10 Hydrocodone/Acetaminophen (*Crx) 5-325 Mg Tablet PO Q4H PRN Pain Rated 4-6 Albuterol 2 puff 02/05/24 10:18 Albuterol Sulfate (*Sp) Aerosol 1 Puff INHALATION Q6HRT PRN Shortness Of Breath Donepezil HCl 10 mg 02/03/24 18:00 02/05/24 17:12 Donepezil Hcl 10 Mg Tablet PO 10 mg QPM KEYLA Administration Famotidine 40 mg 02/03/24 09:00 02/06/24 07:48 Famotidine 20 Mg Tablet PO 40 mg DAILY KEYLA Administration Ibuprofen 400 mg 02/02/24 23:10 Ibuprofen 400 Mg Tablet PO Q6H PRN Mild Pain (1-3) or Fever Radiology Results: ITS Impressions Chest X-Ray 02/02/24 22:14 IMPRESSION: 1. No acute cardiopulmonary disease. Pelvis X-Ray 02/02/24 22:17 IMPRESSION: 1. 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 Head CT 02/02/24 22:24 IMPRESSION: 1. 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 2. 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 Labs Labs: Laboratory Results - last 24 hr 02/06/24 05:34 WBC 8.0 RBC 3.69 L Hgb 12.3 L Hct 35.7 L MCV 96.7 MCH 33.3 MCHC 34.5 RDW 12.3 Plt Count 197 MPV 9.5 Immature Gran % (Auto) 0.5 Neut % (Auto) 56.6 Lymph % (Auto) 23.6 [place] % (Auto) 13.5 H Eos % (Auto) 5.0 H Baso % (Auto) 0.8 Lymph # (Auto) 1.88 [place] # (Auto) 1.1 H Eos # (Auto) 0.4 H Baso # (Auto) 0.1 Abs Immat Gran (auto) 0.04 H Absolute Neuts (auto) 4.5 Absolute Nucleated RBC 0.000 Nucleated RBC % 0.0 Sodium 136 L Potassium 3.8 Chloride 106 Carbon Dioxide 26 Anion Gap 4 BUN 25 H Creatinine 1.30 Estim Creat Clear Calc 31 Estimated GFR 52 L Glucose 121 H Calcium 9.0 Total Bilirubin 1.3 AST 63 H ALT 73 H Alkaline Phosphatase 111 Total Protein 7.0 Albumin 4.0
--- NOTE | 2024-02-06 11:11 | P.DS_ITS ---
DS: Admitting Diagnosis Discharge Date 02/06/2024 Admitting Diagnosis Fall with right knee injury. DS: Discharge Diagnosis Discharge Diagnosis (1) Fracture, patella: Qualifiers: Encounter type: initial encounter Fracture alignment: displaced Fracture morphology: comminuted Fracture type: closed Laterality: right Qualified Code(s): S82.041A - Displaced comminuted fracture of right patella, initial encounter for closed fracture Code(s): S82.009A - Unspecified fracture of unspecified patella, initial encounter for closed fracture Status: Acute (2) Fall: Code(s): W19.XXXA - Unspecified fall, initial encounter Status: Acute (3) Dementia: Code(s): F03.90 - Unspecified dementia, unspecified severity, without behavioral disturbance, psychotic disturbance, mood disturbance, and anxiety Status: Acute DS: Summary Hospital Course Hospital Course: * Patient fell at home and had right knee pain. * Right knee X-ray showed: Comminuted fracture of proximal patella, moderate right knee osteoarthritis, and large knee joint effusion. * Chest X-ray: No acute cardiopulmonary disease. 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 * Orthopedic seen patient. The patient has declined surgical treatment. Risks of treatment decision discussed in detail. Potential problems with displacement of the fracture, loss of alignment, nonunion, malunion and dysfunction discussed in detail. The patient's questions were answered. They verbalized understanding and agreement. Conservative treatment with immobilization, ice, compression and elevation. Knee immobilizer. Weight bear as tolerated. Pain control. PT/OT. * Discharged to [facility] for rehab. Status at Discharge Functional status at discharge: uses cane/walker Overall status at discharge: patient is not back to baseline Time Spent with Patient Time attestation: Total time spent providing and/or coordinating discharge services: Time spent: Greater than 30 minutes Exam Const: General: comfortable and no acute distress Eyes: Sclera: sclerae normal Neck: Neck: supple Resp: Effort & Inspection: normal respiratory effort Auscultation: diminished lung sounds Cardio: Rate: regular rate Rhythm: regular rhythm GI: GI Palp: Yes Soft to palpation Auscultation: normal bowel sounds Skin: General skin exam: no rashes or lesions noted Extrem: General: no pedal edema Psych: Affect: normal affect DS: Data Data Completed and Pending Labs on day of discharge: Labs from last 24 hours 02/06/24 05:34 WBC 8.0 RBC 3.69 L Hgb 12.3 L Hct 35.7 L MCV 96.7 MCH 33.3 MCHC 34.5 RDW 12.3 Plt Count 197 MPV 9.5 Immature Gran % (Auto) 0.5 Neut % (Auto) 56.6 Lymph % (Auto) 23.6 [place] % (Auto) 13.5 H Eos % (Auto) 5.0 H Baso % (Auto) 0.8 Lymph # (Auto) 1.88 [place] # (Auto) 1.1 H Eos # (Auto) 0.4 H Baso # (Auto) 0.1 Abs Immat Gran (auto) 0.04 H Absolute Neuts (auto) 4.5 Absolute Nucleated RBC 0.000 Nucleated RBC % 0.0 Sodium 136 L Potassium 3.8 Chloride 106 Carbon Dioxide 26 Anion Gap 4 BUN 25 H Creatinine 1.30 Estim Creat Clear Calc 31 Estimated GFR 52 L Glucose 121 H Calcium 9.0 Total Bilirubin 1.3 AST 63 H ALT 73 H Alkaline Phosphatase 111 Total Protein 7.0 Albumin 4.0 Discharge Plan Discharge Attending physician on discharge: John Martins Consulting providers: Srinivasan Alvarenga Discharging Clinician: Marcelina Reyes Anticipated Discharge Date/Time: 02/06/24 11:30 Patient Disposition: SNF Activity: may shower, no driving and follow weight bearing status Diet: regular Discharge Instructions: Orthopedic Recommendations Dr. Srinivasan Alvarenga [phone] * Immobilization, ice, compression and elevation. * Knee immobilizer. Weight bear as tolerated. * Pain control. * PT/OT. * Follow up appt indicated below. Patient Instructions: Pain Management (DC) Patient Language: Uzbek Stand Alone Forms: General Discharge Information Follow-up/Referrals: Keesha,MD Leroy [Primary Care Provider] - 2 Weeks Srinivasan Alvarenga MD [Physician] - 03/17/24 8:15 am Discharge Medications: New acetaminophen 325 mg Tablet 650 mg PO Q4H PRN (Reason: Mild Pain (1-3) Or Fever) Qty: 30 0RF Continued donepezil 10 mg tablet 10 mg PO QPM famotidine 40 mg tablet 40 mg PO DAILY multivitamin [Daily Multi-Vitamin] Tablet 1 tablet PO DAILY cyanocobalamin (vitamin B-12) 1,000 mcg capsule 1,000 mcg PO DAILY aspirin 81 mg capsule 81 mg PO DAILY loratadine [Allergy Relief (loratadine)] 10 mg tablet 10 mg PO DAILY Date of admission: 02/03/24 15:35 Primary Care Provider: KeeshaLeroy Admitting Provider: Mindy Moser V. Attending physician on admission: Mindy Moser V. Condition: Stable Hospitalist MIPS Heart Failure (Exclusion) Patient has history of Heart Transplant or Left Ventricular Assistive Device?: No IF YES, STOP HERE Heart Failure (Qualifier) Patient has current or prior documentation of LVEF less than or equal to 40%, or mod/servere depressed LVSF?: No IF NO, STOP HERE
== END 2024-02-06 12:42 | DRG 563 ==
LOC: ANHED 22:05 → ANH2MED 23:36
PROVIDERS: Admitting Provider Internal Medicine; Emergency Provider Physician Assistant; PCP Hospitalist; Visit Provider Nurse Practitioner Family
DX: S82.041A Displaced comminuted fracture of right patella, initial encounter for closed fracture (principal); W01.0XXA Fall on same level from slipping, tripping and stumbling without subsequent striking against object, initial encounter; F03.90 Unspecified dementia, unspecified severity, without behavioral disturbance, psychotic disturbance, mood disturbance, and anxiety; Z87.891 Personal history of nicotine dependence
CPT/HCPCS: 36415; 70450; 71046; 72170; 73564; 80048; 80053; 83735; 85025; 97110; 97161; 97165; 97530; 97535; 99214; 99285; A9270; G0378; G0463; J7040; L1830

== ENCOUNTER 2024-04-12 12:24 | Outpatient (CLI) | payer MEDICARE, SELFPAY ==
--- NOTE | ~2024-04-12 | XR_ITS ---
HISTORY: M25.561 - Pain in right knee COMPARISON: 03/17/2024 TECHNIQUE: 3 views of the right knee were performed FINDINGS: Redemonstration of a fracture within the upper third of the patella with trace callus formation. Remainder of the patella is unremarkable. Medial and lateral tibiofemoral joint space narrowing is identified. Increased density within the medial and lateral tibiofemoral joint space, findings consistent with ch ondrocalcinosis. No suprapatellar joint effusion is identified. The infrapatellar joint space is clear. IMPRESSION: Healing patellar fracture, as detailed above. Reviewed, dictated and finalized at location A. [facility]
--- OUTSIDE RECORDS SUMMARY | 2024-04-12 14:04 | XMS_ITS | Clinical Summary ---
Author Organization [facility] Address [address] [place] [address] Care Team Providers Care Grain Mill Worker Name Role Phone Leroy Thao MD Primary Care Provider [phone] Doug Burt MD Unavailable [phone] Allergies Active Allergy Reactions Criticality Noted Date Comments Naproxen Diarrhea,Nausea only Low Medications aspirin 325 mg tabletIndicatio ns:cerebral ischemia,Cerebr al Ischemia Take 1 tablet (325 mg total) by mouth daily 30 tablet 2 12/01/2019 Active multivitamin capsule Take 1 capsule by mouth daily Active cyanocobalamin (Vitamin B-12) 1,000 mcg tabletIndicatio ns:Prevention of Vitamin B12 Deficiency Take 1 tablet (1,000 mcg total) by mouth daily Active simethicone (MYLICON) 125 mg chewable tablet Take 1 tablet (125 mg total) by mouth 4 (four) times a day as needed (cramping/bl oating/gas/n ausea) 120 tablet 3 11/18/2022 Active polyethylene glycol (MIRALAX) 17 gram packetIndicatio ns:constipation Take 1 packet (17 g total) by mouth daily Active donepeziL (ARICEPT) 10 mg tablet Take 1 tablet (10 mg total) by mouth nightly 90 tablet 4 12/24/2022 Active cholecalciferol (VITAMIN D-3) 24706 unit capsule Take 5,000 Units by mouth daily Pt takes 5,000 units Active ascorbic acid (vitamin C) 1,000 mg tablet Take 1 tablet (1,000 mg total) by mouth daily Active famotidine (PEPCID) 40 mg tablet TAKE 1 TABLET BY MOUTH EVERY DAY 90 tablet 3 12/22/2023 Active Active Problems Problem Noted Date Diagnosed Date BMI 22.0-22.9, adult 01/06/2024 Assessment & Plan (01/06/2024 12:57 PM WHARF TALLY CLERK): Weight appropriate for patient. Medicare annual wellness visit, subsequent 01/05 Assessment & Plan (01/06/2024 12:58 PM WHARF TALLY CLERK): In regard to health maintenance, Influenza vaccine- declined Pneumococcal vaccine- declined Shingrix vaccine- Declined Eat a healthy diet: focus on lean meats and proteins, more fruits, vegetables and whole grains and low in sugars and fats. Limit red meat and avoid processed meat. Maintain a healthy weight; avoid being overweight. Aim for a normal body mass index (BMI) of 18.5-24.9. Help learning to eat healthier, we can set up appointment with cutter hand/molding sander. Have an active lifestyle, strive for 30 minutes of moderate exercise 5 times a week and strength or resistance training at least twice a week. Use broad-spectrum (UVA+UVB) sunscreen with SPF 30 or greater, is water resistant, limit time spent in the sun (10 am-4pm), wear hat, wear UV protective clothing, wear sunglasses. Never use a tanning bed. Skin that was irradiated may be more sensitive over your lifetime. Limit alcohol intake, 1 drink per day for a woman and 2 drinks per day for a man. Encounter for screening for lipid disorder 01/05 Assessment & Plan (01/06/2024 12:58 PM WHARF TALLY CLERK): Lipid panel stable and will continue to monitor. Duodenitis 01/03/2023 Chronic superficial gastritis without bleeding 1 03/05/2022 Assessment & Plan (01/06/2024 12:56 PM WHARF TALLY CLERK): Stable and well controlled. Will continue on Famotidine Assessment & Plan (06/25/2023 5:08 PM CDT): Stable, well controlled; no major symptoms at this time Continue famotidine 40 mg daily Gastroesophageal reflux dise ase with esophagitis without hemorrhage 01/03/2023 Assessment & Plan (01/06/2024 12:56 PM WHARF TALLY CLERK): Stable and well controlled. Will continue on Famotidine. Irritable bowel syndrome with constipation 01/03 Assessment & Plan (01/06/2024 12:57 PM WHARF TALLY CLERK): Continues on MiraLAX for severe symptoms. Assessment & Plan (06/25/2023 5:09 PM CDT): Continues to have issues with constipation; takes it limited flow study of the day Continue MiraLax for severe symptoms Belching 12/16/2022 Nausea and vomiting 11/18/2022 Dyspepsia 11/18/2022 Assessment & Plan (12/24/2022 2:15 PM WHARF TALLY CLERK): Generally well controlled; continues to have some belching Will discontinue famotidine, start Prilosec 20 mg daily Alzheimer's disease, unspecified 11/07/2022 Assessment & Plan (01/06/2024 12:56 PM WHARF TALLY CLERK): Daughter states memory seems to be getting a little worse. Would like to check Vitamin B 12 levels. Will consider memory clinic or medications once Vitamin B 12 is resulted. Assessment & Plan (06/25/2023 5:08 PM CDT): Stable, well controlled, gets lost with driving; has tracker and car; no issues with self-care Able to play pool Continue donepezil 10 mg nightly Assessment & Plan (12/24/2022 2:15 PM WHARF TALLY CLERK): Continues to have some difficulty with word finding, misplaces items at home; has gotten lost several times and driving especially far away from home Family is working with patient to limit movements are to know where he is Increase donepezil to 10 mg nightly Assessment & Plan (11/07/2022 4:54 PM CDT): Patient has becoming more forgetful; forgetting phone numbers; code for doors; Slums performed today; 15 of 30; consistent with diagnosis of dementia; Will start donepezil 5 mg nightly; follow-up in 1-2 months; if no improvement, consider referral to neurology for diagnostic testing Acute cholecystitis due to biliary calculus 05/19 Assessment & Plan (06/19/2022 4:25 PM CDT): Stable, well controlled; patient reports no significant postsurgical pain; abdomen is nonprotuberant; well-healing surgical scars; bruising around umbilicus, with no evidence of hematoma, no evidence of surgical site infections Continue to monitor, limit lifting to 8 lb until cleared by surgery Hyperbilirubinemia 06/09/2022 Left inguinal hernia 08/17/2021 Assessment & Plan (08/17/2021 11:47 AM CDT): Patient reports some growth of left inguinal hernia, patient reports he is no longer able to reduce hernia Patient reports no significant pain, nausea vomiting or change in bowel habits Given that hernia is not reducible, would refer to general surgery for evaluation Dysthymia 04/18/2021 Assessment & Plan (06/25/2023 5:08 PM CDT): Stable, well controlled; no major depression Assessment & Plan (01/01/2022 2:38 PM WHARF TALLY CLERK): Stable, no concerns Assessment & Plan (04/18/2021 10:00 AM WHARF TALLY CLERK): Stable, patient has decreased motivation to do things, as well as general sleep disturbances and altered sleep habits Patient is generally engaged, spends time with friends and neighbors, actively playing pool for approximately 3 hours 3-5 times per week Patient does report some decreased appetite, but no significant weight loss patient not interested medication, will continue to monitor, encouraged patient to use melatonin at bedtime for sleep initiation Slow transit constipation 04/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 for constipation Assessment & Plan (01/01/2022 2:37 PM WHARF TALLY CLERK): Stable, no current issues; using milk of magnesia daily; has limited fluid intake and limited fruits vegetables Encourage high-fiber diet, appropriate fluid intake, continue to use milk of magnesia p.r.n. Assessment & Plan (08/17/2021 11:48 AM CDT): Not well controlled, patient continues to have constipation daily; bowel movements every 3-4 days Patient has been using milk of magnesia and prunes; patient reports limited water intake, but does take an approximately 4-5 cups of coffee daily Encourage further fluid intake; continue to monitor Assessment & Plan (04/18/2021 10:01 AM WHARF TALLY CLERK): Patient reports he has always had irregular bowel movements, but recently has had more severe and worsening constipation Heart painful bowel movements requiring straining causing some increased blood with defecation Encouraged patient to increase fluid intake, approximately 6 12 oz bottles of water per day Use of milk of magnesia daily to help with stool softening Will continue to monitor History of CVA with residual deficit 01/10/2020 Overview (01/10/2020): CVA on Nov 30 2019 Left sided numbness Assessment & Plan (01/06/2024 12:55 PM WHARF TALLY CLERK): Stable and well controlled. Balance improving. No weakness or numbness. Will continue to monitor. Continues on ASA. Assessment & Plan (06/25/2023 5:08 PM CDT): Stable, generally well controlled, has some balance issues; no significant weakness or numbness Will continue to monitor Continue ASA 325 mg daily Assessment & Plan (12/24/2022 2:14 PM WHARF TALLY CLERK): Stable, continues to have some numbness on left hand; otherwise recovered; continue risk reduction; ASA 325 mg daily Assessment & Plan (01/01/2022 2:38 PM WHARF TALLY CLERK): Continues some numbness in itching left lateral forearm [place]; continue to monitor discussed with patient symptoms will likely be persistent Assessment & Plan (08/17/2021 11:47 AM CDT): Patient continues to have some left-sided numbness; no other deficiencies Continue ASA 325 mg daily patient declines other medical therapies Assessment & Plan (04/18/2021 9:57 AM WHARF TALLY CLERK): Stable, no recurrent symptoms, patient reports dizziness and fatigue on atorvastatin; patient have stopped by has self Today will discontinue atorvastatin 20 mg Assessment & Plan (12/12/2020 3:01 PM CDT): Stable, not well controlled; continues to have some deficits of memory and numbness in left arm Continue ASA and Atorvastatin 20 mg daily Assessment & Plan (07/11/2020 1:31 PM CDT): Continues to have perioral numbness and left arm numbess; improved since initial CVA; will continue to monitor. -continue Statin therapy for past CVA; will continue to evaluate with patient if medication should be continued. Assessment & Plan (04/11/2020 9:52 AM WHARF TALLY CLERK): Numbness is improving, now down to below left elbow; encourage patient to continue with home exercises and remain active Assessment & Plan (01/10/2020 11:38 AM WHARF TALLY CLERK): Patient is doing well, has normal strength all extremities Continues to have some decreased sensation on left side Physical therapy signed off patient for home physical therapy Encouraged continue use of to worsen 20 mg for secondary prevention, continue with ASA 325 Will reassess need for medication in 6 months Follow-up in 3 months to ensure appropriate recovery Osteoarthritis of fingers of hands, bilateral Overview (01/10/2020): decreased security systems technician strength Assessment & Plan (04/18/2021 9:57 AM WHARF TALLY CLERK): Stable, not well controlled; patient is able to do some things at home, but has limited function including use of work shop Continue to monitor Assessment & Plan (12/12/2020 3:00 PM CDT): Stable, not well contolled; continues to have pain and decreased strength. Encourage general activity to decrease pain Assessment & Plan (07/11/2020 1:29 PM CDT): Stable, continues to have pain in hands; Assessment & Plan (04/11/2020 9:53 AM WHARF TALLY CLERK): Stable, no recent changes Assessment & Plan (01/10/2020 11:40 AM WHARF TALLY CLERK): Stable, well controlled Patient has some limited functionality of hands, reports that pain is generally mild Continue with general exercise for management of strength and functionality of hand Cervical myelopathy 07/21/2014 Assessment & Plan (01/06/2024 12:54 PM WHARF TALLY CLERK): Stable and well controlled. Denies pain at this time. Will continue to monitor closely. Assessment & Plan (06/25/2023 5:08 PM CDT): Stable, well controlled; has good relief of pain with chiropractic manipulation Has some poor balance; unclear if related to spinal stenosis verses history of CVA Will continue to monitor closely Assessment & Plan (06/19/2022 4:26 PM CDT): Stable, well controlled; no significant numbness or weakness in bilateral upper extremities Continue to monitor Assessment & Plan (07/11/2020 1:29 PM CDT): Stable, has some neck pain, but does not impact patient performing general activity -has some numbness in left arm, likely due to CVA, however if persists after one year may consider EMG to evaluate if related to CVA vs myelopathy. 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 Will continue to monitor. Per daughter still getting out and doing things in the yard. Assessment & Plan (06/25/2023 5:08 PM CDT): Stable, well controlled; no major limitations associated with back pain Will continue to monitor Osteoarthritis of cervical spine 07/14/2013 Assessment & Plan (08/17/2021 11:48 AM CDT): Stable, generally well controlled; patient reports no significant pain in his neck Abdominal pain Resolved Problems Problem Noted Date Diagnosed Date Resolved Date Acute cholecystitis with chr onic cholecystitis 06/27/2022 Encounters Date Type Department Care Team Description 03/04/2024 [facility]phone [facility] [address] [id number] Leroy Thao MD 03/01/2024 [facility] [address] [phone] Leroy Thao MD Medical Question/Miscellaneous from Last 3 Months Immunizations Immunization Administration Dates Next Due Influenza, Quadrivalent, Hig h Dose, Preservative Free, Intrr 12/24/2022 Influenza, Unspecified 01/06/2024(Deferr ed: Patient Refused),12/24/2022(Deferred: Patient Refused),11/07/2022(Deferred: Patient Refused),10/18/2022(Deferred: Patient Refused),04/18/2021(Deferred: Patient Refused),12/12/2020(Deferred: Patient Refused),02/18/2020(Deferred: Patient Refused),02/18/2020(Deferred: Patient Refused),01/10/2020(Deferred: Patient Refused),02/17/2019(Deferred: Patient Refused),02/17/2019(Deferred: Patient Refused) Moderna SARS-CoV-2 Monovalen t Vaccination (12+ YRS) 04/17/2020,03/20/2020 Pneumococcal Conjugate PCV 13 11/07/2022(Deferre d: Patient Refused) Pneumococcal Conjugate Pcv20 12/24/2022(Deferred : Patient Refused) Pneumococcal Polysaccharide PPV23 11/07/2022(Def erred: Patient Refused) Surgical History Surgery Date Site/Laterality Comments APPENDECTOMY Appendectomy BACK SURGERY Back surgery TONSILLECTOMY Tonsillectomy TOE SURGERY Left Left foot 2nd toe surgery. HAND SURGERY Right HERNIA REPAIR 10/25/2021 Left CHOLECYSTECTOMY Medical History Medical History Date Comments Hx Other Medical Rt hand surgery from trauma Arthritis Stroke (HCC) left hand slight ly weak Constipation Family History Medical History Relation Name Comments Hypertension Daughter Dominique Other Father ; Hypertension Mother Other Mother ; Thyroid disease Mother Relation Name Status Comments Daughter Dominique Father Mother Social History Tobacco Use Types Packs/Day Years Used Date Smoking Tobacco: Former Cigarettes 1 40 Smokeless Tobacco: Never Tobacco Cessation:Counseling Given: Not Answered Alcohol Use Standard Drinks/Week Comments Yes 0 (1 standard drink = 0.6 oz pur e alcohol) Social Connection and Isolat ion Panel [NHANES] Answer Date Recorded In a typical week, how many times do you talk on the phone with family, friends, or neighbors? Twice a week 06/14/2022 How often do you get togethe r with friends or relatives? More than three times a week 06/14/2022 How often do you attend chur ch or pentecostalism services? Never 06/14/2022 Do you belong to any clubs o r organizations such as religion groups, unions, fraternal or athletic groups, or school groups? No 06/14/2022 How often do you attend meet ings of the clubs or organizations you belong to? Never 06/14/2022 Are you , , di vorced, , never , or living with a partner? 06/14/2022 AUDIT-C Answer Date Recorded Q1: How often do you have a drink containing alc ohol? Never 01/03/2023 Average Number of Drinks Not on file 023 Frequency of Binge Drinking Not on file 12/18 Overall Financial Resource Strain (CARDIA) Answe r Date Recorded How hard is it for you to pa y for the very basics like food, housing, medical care, and heating? Not very hard 06/14/2022 PHQ-2 Answer Date Recorded PHQ-2 Total Score (If total score is 3 or more points, staff should administer the PHQ-9) 0 01/06/2024 Hunger Vital Sign Answer Date Recorded Within the past 12 months, y ou worried that your food would run out before you got the money to buy more. Never true 06/15/19 23 Within the past 12 months, t he food you bought just didn't last and you didn't have money to get more. Never true 06/14/2022 PRAPARE - Transportation Answer Date Re corded In the past 12 months, has l ack of transportation kept you from medical appointments or from getting medications? No 05/19 In the past 12 months, has l ack of transportation kept you from meetings, work, or from getting things needed for daily living? No 06/14/2022 Housing Stability Vital Sign Answer Alberto e Recorded In the last 12 months, was t here a time when you were not able to pay the mortgage or rent on time? No 06/14/2022 In the last 12 months, how many places have you lived? 1 06/14/2022 In the last 12 months, was t here a time when you did not have a steady place to sleep or slept in a fdc (including now)? No 06/14/2022 Personal Safety Answer Date Recorded Have you ever been in or are you currently in a harmful physical or emotional relationship or is someone making you feel afraid or unsafe? Denies 12/18/2022 Sex and Gender Information Value Date Recorded Sex Assigned at Not on file Legal Sex Male 12:12 AM WHARF TALLY CLERK Gender Identity Male 01/04/2020 9:02 AM WHARF TALLY CLERK Sexual Orientation Not on file Obstetrics History Last Filed Vital Signs Vital Sign Reading Time Taken Comments Blood Pressure 114/74 01/06/2024 12:34 PM WHARF TALLY CLERK Pulse 74 01/06/2024 12:34 PM WHARF TALLY CLERK Temperature 36.5 C (97.7 F) 06/25/2023 11:03 AM CDT Respiratory Rate 18 01/06/2024 12:34 PM WHARF TALLY CLERK Oxygen Saturation 95% 01/06/2024 12:34 PM WHARF TALLY CLERK Inhaled Oxygen Concentration - - Weight 67.1 kg (148 lb) 01/06/2024 12:34 PM WHARF TALLY CLERK Height 167.6 cm (5' 5.98 ) 01/06/2024 12:[address] Body Mass Index 23.9 01/06/2024 12:34 PM WHARF TALLY CLERK Plan of Treatment Health Maintenance Due Date Last Done Comments DTaP/Tdap/Td Vaccine (1 - Tdap) 1946 Hepatitis B Screening 1953 Zoster Vaccine (1 of 2) 1985 Covid-19 Vaccine (4 - 2023-2 5 season) 2023 02/28/2021, 04/17/2020, 03/20/2020 Depression Screening 01/05/2025 01/06/2024, 06/25/2023, 12/24/2022, Additional history exists Fall Risk Assessment 01/05/2025 01/06/2024, 06/25/2023, 12/24/2022, Additional history exists Well Visit 65+ 01/05/2025 01/06/2024, 08/2022, 12/19/2021, Additional history exists Influenza Vaccine Discontinued 12/24/2022 Pneumococcal vaccine 65+ Discontinued Medical Devices Implanted Type Area Aircraft Cleaner Device Identifier Shelf Expiration Date Model / Serial / Lot [employer] Progrip 15x9cm Self Developer [employer] Rectangle Mesh Surgical Polyester Hernia [id number] - [id number] Implanted:Qty: 1 on 10/25/2021 by Doug Burt MD at [facility] Left: Abdomen Medtronic Inc 12/17/2025 [id number] / / [id number] Med[employer]onic Inc Progrip 15x9cm Self Developer [employer] Rectangle Mesh Surgical Polyester Hernia [id number] - [id number] Implanted:Qty: 1 on 10/25/2021 by Doug Burt MD at [facility] Right: Abdomen Med[employer]onic Inc 12/17/2025 [id number] / / [id number] [employer] [place] Hem-O-[place] Ligate Nonabsorbable Cartridge Medium Large Latex Free [id number] - [id number] Implanted:Qty: 1 on 06/10/2022 by Doug Burt MD at [facility] N/A: Bile Duct [employer] 04/08/2027 [id number] / / [id number] Description:6 clips implante d Insurance MEDICARE [facility] MEDICARE [facility] MEDICARE [facility] Advance Directives For more information, please contact: [phone] * Full Code (Latest Code Status on File) Date Activated Date Inactivated Comments 12/18/2022 7:12 AM 12/18/2022 1:38 PM * Full Code Date Activated Date Inactivated Comments 12/18/2022 7:12 AM 12/18/2022 7:12 AM * Full Code Date Activated Date Inactivated Comments 06/09/2022 6:03 PM 06/13/2022 5:50 PM * Full Code Date Activated Date Inactivated Comments 11/28/2019 11:11 PM 11/30/2019 10:26 PM Care Teams Grain Mill Worker Relationship Specialty Start Date End Date Leroy Thao MD [address] [place] [address] PCP - General Family Medicine 01/10/20 Doug Burt MD [address] [place] [address] [place] [address] Surgeon General Surgery 06/13/22
--- OUTSIDE RECORDS SUMMARY | 2024-04-12 14:05 | XMS_ITS | Continuity of Care Document ---
Author Organization [facility] Address [address] [place] [address] Phone Care Team Providers Care Configuration Technician Name Role Phone Rod Stern MD Unavailable Unavailable Advance Directives Directive Yes / No Effective Date File Name No Information Encounters Encounter Description Practice Location Reason(s) For Visit Diagnoses Date Provider Providers [facility]ied on [facility], [address] [place] [address], [id number], tel:[phone] [facility] No Information Leena Velasco. [address], [place], [id number], . tel:[phone] Referring Provider: Bryan Grover, [address] , [place], [address]. tel:[phone] [facility], [address] [place] [address], [id number], tel:[phone] [facility] LUMB/LUMBOSAC DISC DEGEN Greg Olivarez. [address], [place], [id number], [place]. tel:[phone] [facility], [address] [place] [address], [id number], [place] tel:[phone] [facility] LUMBOSACRAL NEURITIS NOS Josephine Barcenas. [address], [place], [id number], . tel:[phone] [facility], [address] [facility], [place], [place], [id number], tel:[phone] [facility] OTH ADV EFF MED/BIO SUB Leena Velasco. [address], [place], [place], [id number], [place]. tel:[phone] [facility], [address], [place], [place], [id number], tel:[phone] [facility] SCIATICA Agustín Stephen. [address], [place], [place], [id number]. tel:[phone] [facility], [address], [place], [place], [id number], tel:[phone] [facility] - [place] (Op) LUMBAGO Greg Olivarez. [address], [place], [place], [id number], [place]. tel:[phone] Family History Family Member Type Diagnosis Age At Onset No Information Payers Payer name Insurance type Covered republican ID Authoriza tion(s) MEDICARE [id number] BCBS INACTIVE OUT OF STATE [id number] Social History Type Description Quantity Date Captured Comments Sex Male Smoking Status No Information Chief Complaint And Reason For Visit No Information Reason For Referral Reason For Referral No Information History Of Present Illness Encounter Date Complaint History Of Prese nt Illness No Information Functional Status Date Functional Assessmen t No Information Instructions Date Instruction Additional Infor mation No Information Assessments Type Assessment Date No Information Patient Care Teams Name Effective Dates (start - stop) Status Members No Information
--- OUTSIDE RECORDS SUMMARY | 2024-04-12 14:05 | XMS_ITS | Continuity of Care Document ---
Author Organization [facility] Address [address] [place] [address] [address] [place] [address] Phone Care Team Providers Care Wool Sorter Name Role Phone Chapman OD, Deandre Unavailable Unavailable Procedures Procedure Date Eye Exam & Treatment Advance Directives Directive Yes / No Effective Date File Name No Information Encounters Encounter Description Practice Location Reason(s) For Visit Diagnoses Date Provider Providers Copied on Encounter [facility], [address], [place], [place], [id number], [place] tel:[phone] [facility] [place] [facility] No Information 4-200 7 Chapman OD Deandre. [address] , [address], [place], [address], [place]. tel:[phone] Family History Family Member Type Diagnosis Age At Onset No Information Payers Payer name Insurance type Covered libertarian ID Authoriza tion(s) [place] [id number] [place] [id number] Social History Type Description Quantity Date Captured [...]
--- OUTSIDE RECORDS SUMMARY | 2024-04-12 14:05 | XMS_ITS | Referral Summary ---
Author Organization [facility] Address [address] [place] [address] Care Team Providers Care Tile Inspector Name Role Phone Leroy Thao MD Primary Care Provider [phone] Doug Burt MD Unavailable [phone] Encounters Date Type Department Care Team Description 03/04/2024 Telephone [facility] [address] [address] Leroy Thao MD 03/01/2024 Telephone [facility] [address] [address] Leroy Thao MD Medical Question/Miscellaneous from Last 3 Months Allergies Active Allergy Reactions Criticality Noted Date [...] tablet 4 12/24/2022 Active cholecalciferol (VITAMIN D-3) 28927 unit capsule Take 5,000 Units by mouth [...] 01/06/2024 Assessment & Plan (01/06/2024 12:57 PM INTERNATIONAL LOGISTICS ANALYST): Weight appropriate for patient. Medicare annual wellness visit, subsequent 01/05 Assessment & Plan (01/06/2024 12:58 PM INTERNATIONAL LOGISTICS ANALYST): In regard to health maintenance, Influenza vaccine- [...] healthier, we can set up appointment with clinical psychologist/freight router. Have an active lifestyle, strive for 30 [...] 01/05 Assessment & Plan (01/06/2024 12:58 PM INTERNATIONAL LOGISTICS ANALYST): Lipid panel stable and will continue to monitor. Duodenitis 01/03/2023 Chronic superficial gastritis without bleeding 1 03/05/2022 Assessment & Plan (01/06/2024 12:56 PM INTERNATIONAL LOGISTICS ANALYST): Stable and well controlled. Will continue on Famotidine Assessment & Plan (06/25/2023 5:08 PM CDT): Stable, well controlled; no major symptoms at this time Continue famotidine 40 mg daily Gastroesophageal reflux dise ase with esophagitis without hemorrhage 01/03/2023 Assessment & Plan (01/06/2024 12:56 PM INTERNATIONAL LOGISTICS ANALYST): Stable and well controlled. Will continue on Famotidine. Irritable bowel syndrome with constipation 01/03 Assessment & Plan (01/06/2024 12:57 PM INTERNATIONAL LOGISTICS ANALYST): Continues on MiraLAX for severe symptoms. Assessment & Plan (06/25/2023 5:09 PM CDT): Continues to have issues with constipation; takes it limited flow study of the day Continue MiraLax for severe symptoms Belching 12/16/2022 Nausea and vomiting 11/18/2022 Dyspepsia 11/18/2022 Assessment & Plan (12/24/2022 2:15 PM INTERNATIONAL LOGISTICS ANALYST): Generally well controlled; continues to have some belching Will discontinue famotidine, start Prilosec 20 mg daily Alzheimer's disease, unspecified 11/07/2022 Assessment & Plan (01/06/2024 12:56 PM INTERNATIONAL LOGISTICS ANALYST): Daughter states memory seems to be getting [...] nightly Assessment & Plan (12/24/2022 2:15 PM INTERNATIONAL LOGISTICS ANALYST): Continues to have some difficulty with word [...] depression Assessment & Plan (01/01/2022 2:38 PM INTERNATIONAL LOGISTICS ANALYST): Stable, no concerns Assessment & Plan (04/18/2021 10:00 AM INTERNATIONAL LOGISTICS ANALYST): Stable, patient has decreased motivation to do [...] 04/18/2021 Assessment & Plan (12/24/2022 2:14 PM INTERNATIONAL LOGISTICS ANALYST): Not well controlled, continues to have hard formed stool take extended duration to pass; encouraged continued use docusate senna; MiraLax daily to help with regular bowel movements Assessment & Plan (06/19/2022 4:25 PM CDT): Continues to have infrequent bowel movements; uses milk of magnesia p.r.n. for constipation Assessment & Plan (01/01/2022 2:37 PM INTERNATIONAL LOGISTICS ANALYST): Stable, no current issues; using milk of [...] monitor Assessment & Plan (04/18/2021 10:01 AM INTERNATIONAL LOGISTICS ANALYST): Patient reports he has always had irregular [...] numbness Assessment & Plan (01/06/2024 12:55 PM INTERNATIONAL LOGISTICS ANALYST): Stable and well controlled. Balance improving. No weakness or numbness. Will continue to monitor. Continues on ASA. Assessment & Plan (06/25/2023 5:08 PM CDT): Stable, generally well controlled, has some balance issues; no significant weakness or numbness Will continue to monitor Continue ASA 325 mg daily Assessment & Plan (12/24/2022 2:14 PM INTERNATIONAL LOGISTICS ANALYST): Stable, continues to have some numbness on left hand; otherwise recovered; continue risk reduction; ASA 325 mg daily Assessment & Plan (01/01/2022 2:38 PM INTERNATIONAL LOGISTICS ANALYST): Continues some numbness in itching left lateral forearm DePaul; continue to monitor discussed with patient symptoms will likely be persistent Assessment & Plan (08/17/2021 11:47 AM CDT): Patient continues to have some left-sided numbness; no other deficiencies Continue ASA 325 mg daily patient declines other medical therapies Assessment & Plan (04/18/2021 9:57 AM INTERNATIONAL LOGISTICS ANALYST): Stable, no recurrent symptoms, patient reports dizziness [...] continued. Assessment & Plan (04/11/2020 9:52 AM INTERNATIONAL LOGISTICS ANALYST): Numbness is improving, now down to below left elbow; encourage patient to continue with home exercises and remain active Assessment & Plan (01/10/2020 11:38 AM INTERNATIONAL LOGISTICS ANALYST): Patient is doing well, has normal strength [...] fingers of hands, bilateral Overview (01/10/2020): decreased quality assurance advisor strength Assessment & Plan (04/18/2021 9:57 AM INTERNATIONAL LOGISTICS ANALYST): Stable, not well controlled; patient is able [...] hands; Assessment & Plan (04/11/2020 9:53 AM INTERNATIONAL LOGISTICS ANALYST): Stable, no recent changes Assessment & Plan (01/10/2020 11:40 AM INTERNATIONAL LOGISTICS ANALYST): Stable, well controlled Patient has some limited functionality of hands, reports that pain is generally mild Continue with general exercise for management of strength and functionality of hand Cervical myelopathy 07/21/2014 Assessment & Plan (01/06/2024 12:54 PM INTERNATIONAL LOGISTICS ANALYST): Stable and well controlled. Denies pain at [...] 07/21/2014 Assessment & Plan (04/11/2020 9:53 AM INTERNATIONAL LOGISTICS ANALYST): Now falls Assessment & Plan (01/10/2020 11:39 AM INTERNATIONAL LOGISTICS ANALYST): Patient has several falls, with poor retropulsion, not associated with CVA Encouraged patient to be careful with dangerous activities including working in workshop Continue to monitor Chronic back pain 07/14/2013 Assessment & Plan (01/06/2024 12:55 PM INTERNATIONAL LOGISTICS ANALYST): Stable and well controlled. Will continue to [...] Acute cholecystitis with chr onic cholecystitis 06/27/2022 Immunizations Immunization Administration Dates Next Due Influenza, [...] Pneumococcal Polysaccharide PPV23 11/07/2022(Def erred: Patient Refused) Social History Tobacco Use Types Packs/Day Years [...] often do you attend chur ch or restorationist services? Never 06/14/2022 Do you belong to any clubs o r organizations such as congregation groups, unions, fraternal or athletic groups, or [...] place to sleep or slept in a long term (including now)? No 06/14/2022 Personal Safety Answer Date Recorded Have you ever been in or are you currently in a harmful physical or emotional relationship or is someone making you feel afraid or unsafe? Denies 12/18/2022 Sex and Gender Information Value Date Recorded Sex Assigned at Not on file Legal Sex Male 12:12 AM INTERNATIONAL LOGISTICS ANALYST Gender Identity Male 01/04/2020 9:02 AM INTERNATIONAL LOGISTICS ANALYST Sexual Orientation Not on file Last Filed Vital Signs Vital Sign Reading Time Taken Comments Blood Pressure 114/74 01/06/2024 12:34 PM INTERNATIONAL LOGISTICS ANALYST Pulse 74 01/06/2024 12:34 PM INTERNATIONAL LOGISTICS ANALYST Temperature 36.5 C (97.7 F) 06/25/2023 11:03 AM CDT Respiratory Rate 18 01/06/2024 12:34 PM INTERNATIONAL LOGISTICS ANALYST Oxygen Saturation 95% 01/06/2024 12:34 PM INTERNATIONAL LOGISTICS ANALYST Inhaled Oxygen Concentration - - Weight 67.1 kg (148 lb) 01/06/2024 12:34 PM INTERNATIONAL LOGISTICS ANALYST Height 167.6 cm (5' 5.98 ) 01/06/2024 12:[address] Body Mass Index 23.9 01/06/2024 12:34 PM INTERNATIONAL LOGISTICS ANALYST Plan of Treatment Not on file Medical Devices Implanted Type Area Six Sigma Project Manager Device Identifier Shelf Expiration Date Model / Serial / Lot [employer] Progrip 15x9cm Self Rework Operator Rectangle Mesh Surgical Polyester Hernia [id number] - [id number] Implanted:Qty: 1 on 10/25/2021 by Doug Burt MD at [facility] Left: Abdomen Med[employer] Inc 12/17/2025 [id number] / / [id number] Med[employer] Progrip 15x9cm Self Rework Operator Rectangle Mesh Surgical Polyester Hernia [id number] - [id number] Implanted:Qty: 1 on 10/25/2021 by Doug Burt MD at [facility] Right: Abdomen Med[employer] Inc 12/17/2025 [id number] / / [id number] [employer] Weck Hem-O-Mahogany Ligate Nonabsorbable Cartridge Medium Large Latex Free [id number] - [id number] Implanted:Qty: 1 on 06/10/2022 by Doug Burt MD at [facility] N/A: Bile Duct [employer] 04/08/2027 [id number] / / [id number] Description:6 clips implante d Insurance MEDICARE [facility] MEDICARE [facility] MEDICARE [facility] Advance Directives For more information, please contact: [phone] * Full Code (Latest Code Status on File) Date Activated Date Inactivated Comments 12/18/2022 7:12 AM 12/18/2022 1:38 PM * Full Code Date Activated Date Inactivated Comments 12/18/2022 7:12 AM 12/18/2022 7:12 AM * Full Code Date Activated Date Inactivated Comments 06/09/2022 6:03 PM 06/13/2022 5:50 PM * Full Code Date Activated Date Inactivated Comments 11/28/2019 11:11 PM 11/30/2019 10:26 PM Care Teams Tile Inspector Relationship Specialty Start Date End Date Leroy Thao MD [facility] [place] [address] PCP - General Family Medicine 01/10/20 Doug Burt MD [address] [place] [address] [place] [address] Surgeon General Surgery 06/13/22
== END 2024-04-12 12:25 | disposition home or self-care (01) ==
LOC: ANHBWCIMG 12:28
PROVIDERS: Visit Provider Orthopaedic Surgery
DX: S82.091D Other fracture of right patella, subsequent encounter for closed fracture with routine healing (principal); X58.XXXD Exposure to other specified factors, subsequent encounter
CPT/HCPCS: 73562